=== PATIENT | female | born 1955 | race Caucasian/White ===

== ENCOUNTER 2016-08-03 19:49 | Emergency (ER) | payer MEDICAID ==
[~2016-08-03] VITALS: Ht 182.9 cm; Wt 86.4 kg
[~2016-08-03 19:49] MED LIST: ASPI-1093 PO; BUSP15 PO; LEVO50 PO
[2016-08-03 19:54] VITALS: BP 125/58
[2016-08-04] MEDS ORDERED: TRAZ-147 PO (11:46)
[2016-08-04] MEDS ORDERED: QUET50XR PO (11:46)
== END 2016-08-03 22:00 | disposition left against medical advice (07) ==
LOC: EMS 19:51
DX: F10.229 Alcohol dependence with intoxication, unspecified (principal); Y90.9 Presence of alcohol in blood, level not specified; Z53.21 Procedure and treatment not carried out due to patient leaving prior to being seen by health care provider

== ENCOUNTER 2016-08-04 11:30 | Emergency (ER) | payer MEDICAID, OTHER ==
[~2016-08-04] VITALS: Ht 170.2 cm; Wt 65.9 kg
[2016-08-04] MEDS ORDERED: TRAZ-147 PO (11:46)
[2016-08-04] MEDS ORDERED: QUET50XR PO (11:46)
[2016-08-04] MEDS ORDERED: MAGNESIUM SULFATE 2 GM, MVI, ADULT NO.1 WITH VIT K 10 ML, THIAMINE HCL 100 MG, FOLIC AC... IV ONE ×5 (12:30)
[2016-08-04 12:34] LABS: BASOPHILS % (AUTO) 0.5 % (0.0-2.0); EOSINOPHILS % (AUTO) 2.9 % (1.0-6.0); HEMATOCRIT 44.3 % (36-46); HEMOGLOBIN 14.5 g/dL (12.0-16.0); LYMPHOCYTES # (AUTO) 2.8 K/uL (1.0-4.8); LYMPHOCYTES % (AUTO) 40.5 % (22.0-44.0); MEAN CORPUSCULAR HEMOGLOBIN 29.1 pg (26.0-34.0); MEAN CORPUSCULAR HGB CONC 32.7 G/dL (31.0-37.0); MEAN CORPUSCULAR VOLUME 89 fL (80-100); MONOCYTES # (AUTO) 0.6 K/uL (0.1-1.0); MONOCYTES % (AUTO) 8.4 % (2.0-9.0); NEUTROPHILS # (AUTO) 3.3 K/uL (1.8-7.7); NEUTROPHILS % (AUTO) 47.7 % (40.0-70.0); PLATELET COUNT (AUTO) 249 K/uL (150-450); RED BLOOD CELL COUNT(AUTO) 4.98 MIL/uL (4.00-5.20); RED CELL DISTRIBUTION WIDTH 14.4 % (11.5-14.5); WHITE BLOOD COUNT (AUTO) 6.9 K/uL (4.5-11.0)
[2016-08-04 12:40] LABS: ANION GAP 15 mmol/L (8-16); CALCIUM, TOTAL 8.9 mg/dL (8.8-10.5); CARBON DIOXIDE 24 mmol/L (22-29); CHLORIDE 105 mmol/L (98-107); CREATININE 0.87 mg/dL (0.60-1.30); GLOMERULAR FILTR. RATE CALC > 60 mL/min (>60); POTASSIUM 3.9 mmol/L (3.5-5.1); SODIUM SERUM 144 mmol/L (136-145); UREA NITROGEN, BLOOD 11 mg/dL (7-18)
[2016-08-04 12:46] LABS: ALANINE AMINOTRANSFERASE 38 U/L (12-78); ALBUMIN 4.1 g/dL (3.4-5.0); ASPARTATE AMINOTRANSFERASE 30 U/L (15-37); BILIRUBIN,TOTAL 0.6 mg/dL (0.1-1.0); TOTAL PROTEIN, SERUM 7.2 g/dL (6.4-8.2)
[2016-08-04] MEDS ORDERED: BusPIRone HCL 15 MG TABLET PO ONE (20:00)
[2016-08-04] MEDS ORDERED: GABAPENTIN 100 MG CAPSULE PO ONE (20:00)
[2016-08-04 20:29] VITALS: BP 117/71
== END 2016-08-04 20:32 | disposition home or self-care (01) ==
LOC: EMS 11:32
DX: F10.229 Alcohol dependence with intoxication, unspecified (principal); Z79.82 Long term (current) use of aspirin; Y90.8 Blood alcohol level of 240 mg/100 ml or more
CPT/HCPCS: 36415; 70450; 71010; 80053; 84484; 85025; 93005; 96365; 96366; 99285; G0480; J3411; J3475; J3490 ×2; J7030

== ENCOUNTER 2016-09-17 15:11 | Inpatient (IN) | payer OTHER ==
[~2016-09-17] VITALS: Ht 175.3 cm; Wt 71.6 kg
[~2016-09-17 15:11] MED LIST changes: +QUET50XR PO; +TRAZ-147 PO; +[UNRECOGNIZED DRUG - REMARK]
[2016-09-17 15:22] LABS: GLUCOSE,POINT OF CARE 141 MG/DL (70-110)
[2016-09-17] MEDS ORDERED: SODIUM CHLORIDE 0.9% 1,000 ML IV ONE (15:45)
[2016-09-17] MEDS ORDERED: ASPIRIN 81 MG CHEWABLE TABLET PO ONE (15:45)
[2016-09-17 15:59] LABS: BASOPHILS % (AUTO) 0.8 % (0.0-2.0); EOSINOPHILS % (AUTO) 2.6 % (1.0-6.0); HEMATOCRIT 46.1 % (36-46); HEMOGLOBIN 15.8 g/dL (12.0-16.0); LYMPHOCYTES # (AUTO) 2.7 K/uL (1.0-4.8); LYMPHOCYTES % (AUTO) 39.5 % (22.0-44.0); MEAN CORPUSCULAR HEMOGLOBIN 30.8 pg (26.0-34.0); MEAN CORPUSCULAR HGB CONC 34.2 G/dL (31.0-37.0); MEAN CORPUSCULAR VOLUME 90 fL (80-100); MONOCYTES # (AUTO) 0.5 K/uL (0.1-1.0); MONOCYTES % (AUTO) 7.3 % (2.0-9.0); NEUTROPHILS # (AUTO) 3.4 K/uL (1.8-7.7); NEUTROPHILS % (AUTO) 49.8 % (40.0-70.0); PLATELET COUNT (AUTO) 273 K/uL (150-450); RED BLOOD CELL COUNT(AUTO) 5.11 MIL/uL (4.00-5.20); RED CELL DISTRIBUTION WIDTH 13.7 % (11.5-14.5); WHITE BLOOD COUNT (AUTO) 6.7 K/uL (4.5-11.0)
[2016-09-17] MEDS ORDERED: SODIUM CHLORIDE 0.9% 2,000 ML IV ONE (16:00)
[2016-09-17 16:12] LABS: ANION GAP 14 mmol/L (8-16); CALCIUM, TOTAL 8.9 mg/dL (8.8-10.5); CARBON DIOXIDE 22 mmol/L (22-29); CHLORIDE 104 mmol/L (98-107); CREATININE 0.86 mg/dL (0.60-1.30); GLOMERULAR FILTR. RATE CALC > 60 mL/min (>60); POTASSIUM 3.9 mmol/L (3.5-5.1); SODIUM SERUM 140 mmol/L (136-145); UREA NITROGEN, BLOOD 12 mg/dL (7-18)
[2016-09-17 16:30] LABS: B-TYPE NATRIURETIC PEPTIDE 41 pg/mL (0-100)
[2016-09-17 16:36] LABS: ALANINE AMINOTRANSFERASE 36 U/L (12-78); ALBUMIN 4.1 g/dL (3.4-5.0); ASPARTATE AMINOTRANSFERASE 33 U/L (15-37); BILIRUBIN,TOTAL 0.6 mg/dL (0.1-1.0); CREATINE KINASE MB 0.8 ng/mL (0-5); CREATINE KINASE, TOTAL 83 U/L (26-192); TOTAL PROTEIN, SERUM 7.4 g/dL (6.4-8.2)
[2016-09-17] MEDS ORDERED: DIGOXIN 250 MCG/ML 2 ML AMP IVP ONE (17:30)
[2016-09-17 19:25] LABS: APPEARANCE,URINE CLEAR (CLEAR); GLUCOSE, URINE (UA) NEGATIVE (NEGATIVE); KETONES,URINE NEGATIVE (NEGATIVE); LEUKOCYTE ESTERASE ,URINE NEGATIVE (NEGATIVE); OCCULT BLOOD,URINE NEGATIVE (NEGATIVE); PH,URINE 6.5 (5.0-8.0); PROTEIN,URINE NEGATIVE (NEGATIVE)
[2016-09-17 19:30] LABS: ADD UA MICROSCOPIC NO
[2016-09-17] MEDS ORDERED: ONDANSETRON HCL 4 MG/2 ML VIAL IVP PRN ×2 (20:30→23:30)
[2016-09-17] MEDS ORDERED: ACETAMINOPHEN 325 MG TABLET PO PRN ×2 (20:30→23:30)
[2016-09-17] MEDS ORDERED: 0.9% SODIUM CHLORIDE 10 ML SYRINGE IVP PRN (20:30)
[2016-09-17] MEDS ORDERED: ChlordiazePOXIDE HCL 25 MG CAPSULE PO ONE (20:45)
[2016-09-17 21:16] VITALS: BP 123/72
[2016-09-17] MEDS ORDERED: BISACODYL 10 MG RECTAL RECTAL SUPPOSITORY PR PRN (23:30)
[2016-09-17] MEDS ORDERED: ALBUTEROL SULFATE 2.5 MG/0.5 ML NEB SOLUTION NEB PRN (23:30)
[2016-09-17] MEDS ORDERED: IPRATROPIUM BROMIDE 0.5 MG/2.5 ML NEB SOLUTION NEB PRN (23:30)
[2016-09-17] MEDS ORDERED: MAGNESIUM HYDROXIDE SUSPENSION 30 ML UDCUP PO PRN (23:30)
[2016-09-17] MEDS ORDERED: HYDROCODONE/ACETAMINOPHEN 5-325 MG TABLET PO PRN (23:30)
[2016-09-17] MEDS ORDERED: ZOLPIDEM TARTRATE 5 MG TABLET PO PRN (23:30)
[2016-09-17] MEDS ORDERED: MORPHINE SULFATE 4 MG/ML SYRINGE IVP PRN (23:30)
[2016-09-18 00:30] VITALS: BP 124/93
[2016-09-18] MEDS: HEPARIN SODIUM,PORCINE 5,000 UNITS/ML VIAL SQ SCH ×3 (00:49→15:54)
[2016-09-18 04:49] VITALS: BP 143/86
[2016-09-18 06:11] LABS: ALANINE AMINOTRANSFERASE 39 U/L (12-78); ANION GAP 10 mmol/L (8-16); ASPARTATE AMINOTRANSFERASE 34 U/L (15-37); BILIRUBIN,TOTAL 1.1 mg/dL (0.1-1.0); CALCIUM, TOTAL 9.2 mg/dL (8.8-10.5); CARBON DIOXIDE 26 mmol/L (22-29); CHLORIDE 102 mmol/L (98-107); CREATININE 0.71 mg/dL (0.60-1.30); GLOMERULAR FILTR. RATE CALC > 60 mL/min (>60); POTASSIUM 3.6 mmol/L (3.5-5.1); SODIUM SERUM 138 mmol/L (136-145); TOTAL PROTEIN, SERUM 7.2 g/dL (6.4-8.2); UREA NITROGEN, BLOOD 10 mg/dL (7-18)
[2016-09-18 06:52] LABS: BASOPHILS % (AUTO) 0.6 % (0.0-2.0); EOSINOPHILS % (AUTO) 2.9 % (1.0-6.0); HEMATOCRIT 44.7 % (36-46); HEMOGLOBIN 15.7 g/dL (12.0-16.0); LYMPHOCYTES # (AUTO) 2.3 K/uL (1.0-4.8); LYMPHOCYTES % (AUTO) 28.4 % (22.0-44.0); MEAN CORPUSCULAR HEMOGLOBIN 31.2 pg (26.0-34.0); MEAN CORPUSCULAR HGB CONC 35.1 G/dL (31.0-37.0); MEAN CORPUSCULAR VOLUME 89 fL (80-100); MONOCYTES # (AUTO) 0.6 K/uL (0.1-1.0); MONOCYTES % (AUTO) 7.3 % (2.0-9.0); NEUTROPHILS % (AUTO) 60.8 % (40.0-70.0); PLATELET COUNT (AUTO) 264 K/uL (150-450); RED BLOOD CELL COUNT(AUTO) 5.03 MIL/uL (4.00-5.20); RED CELL DISTRIBUTION WIDTH 13.7 % (11.5-14.5); WHITE BLOOD COUNT (AUTO) 8.3 K/uL (4.5-11.0)
[2016-09-18 07:38] VITALS: BP 131/79
[2016-09-18] MEDS ORDERED: DOCUSATE SODIUM 100 MG CAPSULE PO SCH (09:00)
[2016-09-18] MEDS ORDERED: ASPIRIN 81 MG EC TABLET PO SCH (09:00)
[2016-09-18] MEDS ORDERED: BusPIRone HCL 15 MG TABLET PO SCH ×2 (09:00→21:00)
[2016-09-18] MEDS ORDERED: PANTOPRAZOLE SODIUM 40 MG/VIAL IVP SCH (09:00)
[2016-09-18 11:33] VITALS: BP 132/87
[2016-09-18] MEDS ORDERED: SERTRALINE HCL 100 MG TABLET PO SCH (12:45)
[2016-09-18] MEDS ORDERED: GABAPENTIN 300 MG CAPSULE PO SCH (12:45)
[2016-09-18] MEDS ORDERED: SERT100T12 PO (12:47)
[2016-09-18] MEDS ORDERED: GABA-531 PO (12:47)
[2016-09-18] MEDS ORDERED: ALPRAZolam 0.5 MG TABLET PO ONE (13:00)
[2016-09-18] MEDS ORDERED: DSS100 PO (13:09)
[2016-09-18 15:35] VITALS: BP 135/89
== END 2016-09-18 19:00 | disposition home or self-care (01) | DRG 775 ==
LOC: EMS 15:14 → 5N 19:52
PROVIDERS: ADMIT Hospitalist; ATTEND Hospitalist
DX: F10.10 Alcohol abuse, uncomplicated (principal); I48.91 Unspecified atrial fibrillation; F32.9 Major depressive disorder, single episode, unspecified; E03.9 Hypothyroidism, unspecified; E86.0 Dehydration; F41.9 Anxiety disorder, unspecified; N28.9 Disorder of kidney and ureter, unspecified; Y90.8 Blood alcohol level of 240 mg/100 ml or more
CPT/HCPCS: 82962; 93005; 96361; 96374; 99285; C9113; G0480; J1160; J1644; J7030

== ENCOUNTER 2017-11-11 15:25 | Inpatient (IN) | payer SELFPAY ==
[~2017-11-11] VITALS: Ht 167.6 cm; Wt 69.9 kg
[~2017-11-11 15:25] MED LIST changes: -ASPI-1093 PO; +ASPI-1182 PO; +DSS100 PO; +GABA-531 PO; -LEVO50 PO; -QUET50XR PO; +SERT100T12 PO; -TRAZ-147 PO; -[UNRECOGNIZED DRUG - REMARK]
[2017-11-11 16:13] LABS: GLUCOSE,POINT OF CARE 108 MG/DL (70-110)
[2017-11-11 16:16] LABS: HEMOGLOBIN 14.4 g/dL (12.0-16.0); LYMPHOCYTES # (AUTO) 3.2 K/uL (1.0-4.8); LYMPHOCYTES % (AUTO) 47.2 % (22.0-44.0); MEAN CORPUSCULAR HEMOGLOBIN 31.5 pg (26.0-34.0); MEAN CORPUSCULAR VOLUME 90 fL (80-100); MONOCYTES # (AUTO) 0.4 K/uL (0.1-1.0); MONOCYTES % (AUTO) 6.1 % (2.0-9.0); NEUTROPHILS # (AUTO) 2.8 K/uL (1.8-7.7); NEUTROPHILS % (AUTO) 40.7 % (40.0-70.0); PLATELET COUNT (AUTO) 183 K/uL (150-450); RED BLOOD CELL COUNT(AUTO) 4.56 MIL/uL (4.00-5.20); RED CELL DISTRIBUTION WIDTH 12.5 % (11.5-14.5)
[2017-11-11 16:34] LABS: ANION GAP 10 mmol/L (8-16); CALCIUM, TOTAL 8.5 mg/dL (8.8-10.5); CARBON DIOXIDE 26 mmol/L (22-29); CHLORIDE 109 mmol/L (98-107); CREATININE 0.72 mg/dL (0.60-1.30); GLOMERULAR FILTR. RATE CALC > 60 mL/min (>60); GLUCOSE,RANDOM 103 mg/dL (70-110); POTASSIUM 3.7 mmol/L (3.5-5.1); SODIUM SERUM 145 mmol/L (136-145); UREA NITROGEN, BLOOD 11 mg/dL (7-18)
[2017-11-11 16:40] LABS: ALANINE AMINOTRANSFERASE 31 U/L (12-78); ALBUMIN 3.7 g/dL (3.4-5.0); ALKALINE PHOSPHATASE 103 U/L (46-116); ASPARTATE AMINOTRANSFERASE 25 U/L (15-37); BILIRUBIN,TOTAL 0.7 mg/dL (0.1-1.0); TOTAL PROTEIN, SERUM 6.7 g/dL (6.4-8.2)
[2017-11-11] MEDS ORDERED: LORazepam 2 MG TABLET PO PRN (18:30)
[2017-11-11] MEDS ORDERED: HALOPERIDOL 5 MG TABLET PO PRN (18:30)
[2017-11-11] MEDS ORDERED: ZOLPIDEM TARTRATE 10 MG TABLET PO PRN (18:30)
[2017-11-11] MEDS ORDERED: LORazepam 1 MG TABLET PO ONE (19:00)
[2017-11-11 20:18] LABS: AMPHET/METH SCREEN,URINE NEGATIVE (NEGATIVE); BARBITURATE SCREEN, URINE NEGATIVE (NEGATIVE); BENZODIAZEPINES SCREEN,URINE NEGATIVE (NEGATIVE); CANNABINOID SCREEN,URINE NEGATIVE (NEGATIVE); COCAINE SCREEN,URINE NEGATIVE (NEGATIVE); METHADONE SCREEN, URINE NEGATIVE (NEGATIVE); OPIATE SCREEN,URINE NEGATIVE (NEGATIVE)
[2017-11-11 20:21] LABS: PHENCYCLIDINE SCREEN,URINE NEGATIVE (NEGATIVE)
[2017-11-12] VITALS (8 sets, daily range): BP systolic 130–161; BP diastolic 78–93
[2017-11-12] MEDS ORDERED: LORazepam 2 MG TABLET PO PRN (07:00)
[2017-11-12 07:41] LABS: CHOL/HDL RATIO 2.4 (3.9-5.7)
[2017-11-12] MEDS: LORazepam 2 MG TABLET PO SCH ×4 (09:40→21:06)
[2017-11-12] MEDS: FLUoxetine HCL 20 MG CAPSULE PO SCH (09:40)
[2017-11-12] MEDS ORDERED: ALBUTEROL SULFATE HFA 90 MCG/PUFF 8 GM INHALER IH PRN (11:00)
[2017-11-12] MEDS ORDERED: PETROLATUM,WHITE 71 GM JELLY TP PRN (11:00)
[2017-11-12] MEDS ORDERED: NICOTINE 14 MG/24 HOUR PATCH TD PRN (11:00)
[2017-11-12] MEDS ORDERED: ACETAMINOPHEN 325 MG TABLET PO PRN (11:00)
[2017-11-12] MEDS ORDERED: CloNIDine HCL 0.1 MG TABLET PO PRN (11:00)
[2017-11-12] MEDS ORDERED: MAGNESIUM HYDROXIDE SUSPENSION 30 ML UDCUP PO PRN (11:00)
[2017-11-12] MEDS ORDERED: IBUPROFEN 400 MG TABLET PO PRN (11:00)
[2017-11-12] MEDS ORDERED: ONDANSETRON HCL 4 MG TABLET PO PRN (11:00)
[2017-11-12] MEDS ORDERED: LOPERAMIDE HCL 2 MG CAPSULE PO PRN (11:00)
[2017-11-12] MEDS ORDERED: GuaiFENesin/D-METHORPHAN [SUGAR-FREE] 200-20MG/10 ML SYRUP UDCUP PO PRN (11:00)
[2017-11-12] MEDS ORDERED: DOCUSATE SODIUM 100 MG CAPSULE PO PRN (11:00)
[2017-11-12] MEDS ORDERED: MAG HYDROX/AL HYDROX/SIMETH ES 30 ML SUSPENSION UDCUP PO PRN (11:00)
[2017-11-12] MEDS: SERTRALINE HCL 50 MG TABLET PO SCH (16:42)
[2017-11-12] MEDS: BusPIRone HCL 5 MG TABLET PO SCH (21:06)
[2017-11-12] MEDS: GABAPENTIN 300 MG CAPSULE PO SCH (21:06)
[2017-11-13 07:10] VITALS: BP 135/80
[2017-11-13 08:20] VITALS: BP 138/88
[2017-11-13] MEDS: LORazepam 2 MG TABLET PO SCH ×4 (08:45→20:16)
[2017-11-13] MEDS: BusPIRone HCL 5 MG TABLET PO SCH ×2 (08:45→20:16)
[2017-11-13] MEDS: GABAPENTIN 300 MG CAPSULE PO SCH ×2 (08:45→20:16)
[2017-11-13] MEDS: SERTRALINE HCL 50 MG TABLET PO SCH (08:46)
[2017-11-13] MEDS: FLUoxetine HCL 20 MG CAPSULE PO SCH (08:48)
[2017-11-13 18:22] VITALS: BP 117/88
[2017-11-14 06:53] VITALS: BP 120/84
[2017-11-14] MEDS ORDERED: LORazepam 1 MG TABLET PO PRN (07:00)
[2017-11-14 08:14] VITALS: BP 106/71
[2017-11-14] MEDS: BusPIRone HCL 5 MG TABLET PO SCH ×2 (08:59→20:17)
[2017-11-14] MEDS: LORazepam 1 MG TABLET PO SCH ×4 (09:00→20:17)
[2017-11-14] MEDS: SERTRALINE HCL 50 MG TABLET PO SCH (09:00)
[2017-11-14] MEDS: FLUoxetine HCL 20 MG CAPSULE PO SCH (09:00)
[2017-11-14] MEDS: GABAPENTIN 300 MG CAPSULE PO SCH ×2 (09:00→20:18)
[2017-11-14 19:33] VITALS: BP 126/90
[2017-11-15 05:39] VITALS: BP 113/85
[2017-11-15 05:40] VITALS: BP 113/85
[2017-11-15] MEDS ORDERED: LORazepam 1 MG TABLET PO PRN (07:00)
[2017-11-15] MEDS: FLUoxetine HCL 20 MG CAPSULE PO SCH (08:59)
[2017-11-15] MEDS: GABAPENTIN 300 MG CAPSULE PO SCH ×2 (08:59→20:27)
[2017-11-15] MEDS: BusPIRone HCL 5 MG TABLET PO SCH ×2 (08:59→20:26)
[2017-11-15] MEDS: SERTRALINE HCL 50 MG TABLET PO SCH (08:59)
[2017-11-15 10:12] VITALS: BP 109/76
[2017-11-15 10:13] VITALS: BP 109/79
[2017-11-15 18:27] VITALS: BP 126/84
[2017-11-15 18:31] VITALS: BP 126/84
[2017-11-16 04:25] VITALS: BP 123/70
[2017-11-16 04:26] VITALS: BP 123/70
[2017-11-16] MEDS: SERTRALINE HCL 50 MG TABLET PO SCH (09:08)
[2017-11-16] MEDS: BusPIRone HCL 5 MG TABLET PO SCH ×2 (09:08→20:33)
[2017-11-16] MEDS: FLUoxetine HCL 20 MG CAPSULE PO SCH (09:08)
[2017-11-16] MEDS: GABAPENTIN 300 MG CAPSULE PO SCH ×2 (09:08→20:33)
[2017-11-16 10:48] VITALS: BP 119/70
[2017-11-16 19:09] VITALS: BP 135/76
[2017-11-17 01:15] VITALS: BP 128/84
[2017-11-17 09:18] VITALS: BP 117/68
[2017-11-17] MEDS: SERTRALINE HCL 50 MG TABLET PO SCH (09:19)
[2017-11-17] MEDS: GABAPENTIN 300 MG CAPSULE PO SCH (09:19)
[2017-11-17] MEDS: BusPIRone HCL 5 MG TABLET PO SCH (09:19)
[2017-11-17] MEDS: FLUoxetine HCL 20 MG CAPSULE PO SCH (09:19)
[2017-11-17] MEDS ORDERED: BUSP5TAB20 PO (10:04)
[2017-11-17] MEDS ORDERED: FLUO-191 PO (10:04)
[2017-11-17] MEDS ORDERED: GABA-531 PO (10:05)
[2017-11-17] MEDS ORDERED: SERT50TA12 PO (10:05)
== END 2017-11-17 14:30 | disposition home or self-care (01) | DRG 885 ==
LOC: EMS 15:26 → 3EI 21:14
PROVIDERS: ADMIT Psychiatry & Neurology Psychiatry; ATTEND Psychiatry & Neurology Psychiatry
DX: F33.2 Major depressive disorder, recurrent severe without psychotic features (principal); R45.851 Suicidal ideations; E03.9 Hypothyroidism, unspecified; E78.5 Hyperlipidemia, unspecified; F41.0 Panic disorder [episodic paroxysmal anxiety]; I48.0 Paroxysmal atrial fibrillation; F10.10 Alcohol abuse, uncomplicated; F19.10 Other psychoactive substance abuse, uncomplicated; N18.9 Chronic kidney disease, unspecified; Z79.899 Other long term (current) drug therapy; Z71.51 Drug abuse counseling and surveillance of drug abuser; Z71.41 Alcohol abuse counseling and surveillance of alcoholic
CPT/HCPCS: 99285; G0480; Q0162

== ENCOUNTER 2018-01-11 18:11 | Emergency (ER) | payer MEDICAID ==
[~2018-01-11] VITALS: Ht 177.8 cm; Wt 75.5 kg
[~2018-01-11 18:11] MED LIST changes: -ASPI-1182 PO; -BUSP15 PO; +BUSP5TAB20 PO; -DSS100 PO; +FLUO-191 PO; -SERT100T12 PO; +SERT50TA12 PO
[2018-01-11 21:11] LABS: BASOPHILS % (AUTO) 0.9 % (0.0-2.0); EOSINOPHILS % (AUTO) 5.2 % (1.0-6.0); HEMATOCRIT 38.3 % (36-46); HEMOGLOBIN 13.4 g/dL (12.0-16.0); LYMPHOCYTES % (AUTO) 45.4 % (22.0-44.0); MEAN CORPUSCULAR HEMOGLOBIN 31.6 pg (26.0-34.0); MEAN CORPUSCULAR HGB CONC 34.9 G/dL (31.0-37.0); MEAN CORPUSCULAR VOLUME 90 fL (80-100); MONOCYTES # (AUTO) 0.5 K/uL (0.1-1.0); NEUTROPHILS # (AUTO) 2.7 K/uL (1.8-7.7); NEUTROPHILS % (AUTO) 41.5 % (40.0-70.0); PLATELET COUNT (AUTO) 193 K/uL (150-450); RED BLOOD CELL COUNT(AUTO) 4.24 MIL/uL (4.00-5.20); RED CELL DISTRIBUTION WIDTH 14.1 % (11.5-14.5)
[2018-01-11 21:56] LABS: ANION GAP 9 mmol/L (8-16); CALCIUM, TOTAL 8.8 mg/dL (8.8-10.5); CARBON DIOXIDE 27 mmol/L (22-29); CHLORIDE 105 mmol/L (98-107); CREATININE 0.79 mg/dL (0.60-1.30); GLOMERULAR FILTR. RATE CALC > 60 mL/min (>60); GLUCOSE,RANDOM 90 mg/dL (70-110); POTASSIUM 3.6 mmol/L (3.5-5.1); SODIUM SERUM 141 mmol/L (136-145); UREA NITROGEN, BLOOD 12 mg/dL (7-18)
[2018-01-11 22:04] LABS: ALANINE AMINOTRANSFERASE 41 U/L (12-78); ALBUMIN 3.8 g/dL (3.4-5.0); ALKALINE PHOSPHATASE 82 U/L (46-116); ASPARTATE AMINOTRANSFERASE 31 U/L (15-37); BILIRUBIN,TOTAL 0.6 mg/dL (0.1-1.0)
[2018-01-12 04:21] VITALS: BP 119/68
== END 2018-01-12 04:43 | disposition home or self-care (01) ==
LOC: EMS 18:12
DX: F32.9 Major depressive disorder, single episode, unspecified (principal); F41.9 Anxiety disorder, unspecified; N28.9 Disorder of kidney and ureter, unspecified; F10.229 Alcohol dependence with intoxication, unspecified; Z90.89 Acquired absence of other organs; Z79.899 Other long term (current) drug therapy; Y90.8 Blood alcohol level of 240 mg/100 ml or more
CPT/HCPCS: 36415; 80053; 85025; 99285; G0480

== ENCOUNTER 2018-05-01 03:34 | Emergency (ER) | payer MEDICAID, OTHER ==
[~2018-05-01] VITALS: Ht 172.7 cm; Wt 62.0 kg
[2018-05-01 05:10] LABS: BASOPHILS % (AUTO) 0.5 % (0.0-2.0); EOSINOPHILS % (AUTO) 0.7 % (1.0-6.0); HEMATOCRIT 42.3 % (36-46); HEMOGLOBIN 14.9 g/dL (12.0-16.0); LYMPHOCYTES % (AUTO) 22.4 % (22.0-44.0); MEAN CORPUSCULAR HEMOGLOBIN 29.5 pg (26.0-34.0); MEAN CORPUSCULAR HGB CONC 35.2 G/dL (31.0-37.0); MEAN CORPUSCULAR VOLUME 84 fL (80-100); MONOCYTES # (AUTO) 0.7 K/uL (0.1-1.0); MONOCYTES % (AUTO) 7.6 % (2.0-9.0); NEUTROPHILS # (AUTO) 6.1 K/uL (1.8-7.7); NEUTROPHILS % (AUTO) 68.8 % (40.0-70.0); PLATELET COUNT (AUTO) 340 K/uL (150-450); RED BLOOD CELL COUNT(AUTO) 5.04 MIL/uL (4.00-5.20); RED CELL DISTRIBUTION WIDTH 15.2 % (11.5-14.5)
[2018-05-01 05:13] LABS: ANION GAP 12 mmol/L (8-16); CALCIUM, TOTAL 9.7 mg/dL (8.8-10.5); CARBON DIOXIDE 23 mmol/L (22-29); CHLORIDE 97 mmol/L (98-107); CREATININE 0.69 mg/dL (0.60-1.30); GLOMERULAR FILTR. RATE CALC > 60 mL/min (>60); GLUCOSE,RANDOM 98 mg/dL (70-110); SODIUM SERUM 132 mmol/L (136-145); UREA NITROGEN, BLOOD 20 mg/dL (7-18)
[2018-05-01 05:25] LABS: ALANINE AMINOTRANSFERASE 33 U/L (12-78); ALBUMIN 3.7 g/dL (3.4-5.0); ALKALINE PHOSPHATASE 61 U/L (46-116); ASPARTATE AMINOTRANSFERASE 31 U/L (15-37); BILIRUBIN,TOTAL 0.6 mg/dL (0.1-1.0); TOTAL PROTEIN, SERUM 7.2 g/dL (6.4-8.2)
[2018-05-01 11:29] LABS: AMPHET/METH SCREEN,URINE NEGATIVE (NEGATIVE); BARBITURATE SCREEN, URINE NEGATIVE (NEGATIVE); BENZODIAZEPINES SCREEN,URINE NEGATIVE (NEGATIVE); CANNABINOID SCREEN,URINE NEGATIVE (NEGATIVE); COCAINE SCREEN,URINE NEGATIVE (NEGATIVE); METHADONE SCREEN, URINE NEGATIVE (NEGATIVE); OPIATE SCREEN,URINE NEGATIVE (NEGATIVE); PHENCYCLIDINE SCREEN,URINE NEGATIVE (NEGATIVE)
[2018-05-01 13:56] VITALS: BP 123/73
== END 2018-05-01 14:43 | disposition home or self-care (01) ==
LOC: EMS 03:35
DX: F33.9 Major depressive disorder, recurrent, unspecified (principal); F10.10 Alcohol abuse, uncomplicated; F41.9 Anxiety disorder, unspecified; Y90.0 Blood alcohol level of less than 20 mg/100 ml
CPT/HCPCS: 36415; 80053; 80307; 85025; 99284; G0480

== ENCOUNTER 2018-07-02 15:06 | Emergency (ER) | payer OTHER ==
[~2018-07-02] VITALS: Ht 170.2 cm; Wt 69.7 kg
[2018-07-02 16:18] LABS: BASOPHILS % (AUTO) 1.4 % (0.0-2.0); EOSINOPHILS % (AUTO) 5.1 % (1.0-6.0); HEMATOCRIT 36.7 % (36-46); HEMOGLOBIN 12.7 g/dL (12.0-16.0); LYMPHOCYTES # (AUTO) 2.1 K/uL (1.0-4.8); LYMPHOCYTES % (AUTO) 23.9 % (22.0-44.0); MEAN CORPUSCULAR HEMOGLOBIN 31.3 pg (26.0-34.0); MEAN CORPUSCULAR HGB CONC 34.5 G/dL (31.0-37.0); MEAN CORPUSCULAR VOLUME 91 fL (80-100); MONOCYTES # (AUTO) 0.8 K/uL (0.1-1.0); MONOCYTES % (AUTO) 8.8 % (2.0-9.0); NEUTROPHILS # (AUTO) 5.4 K/uL (1.8-7.7); NEUTROPHILS % (AUTO) 60.8 % (40.0-70.0); PLATELET COUNT (AUTO) 174 K/uL (150-450); RED BLOOD CELL COUNT(AUTO) 4.05 MIL/uL (4.00-5.20); RED CELL DISTRIBUTION WIDTH 20.9 % (11.5-14.5)
[2018-07-02 16:31] LABS: ANION GAP 13 mmol/L (8-16); CALCIUM, TOTAL 9.6 mg/dL (8.8-10.5); CARBON DIOXIDE 24 mmol/L (22-29); CHLORIDE 102 mmol/L (98-107); CREATININE 0.79 mg/dL (0.60-1.30); GLOMERULAR FILTR. RATE CALC > 60 mL/min (>60); GLUCOSE,RANDOM 96 mg/dL (70-110); POTASSIUM 3.6 mmol/L (3.5-5.1); SODIUM SERUM 139 mmol/L (136-145); UREA NITROGEN, BLOOD 13 mg/dL (7-18)
[2018-07-02 16:47] LABS: ALANINE AMINOTRANSFERASE 42 U/L (12-78); ALBUMIN 3.5 g/dL (3.4-5.0); ALKALINE PHOSPHATASE 78 U/L (46-116); ASPARTATE AMINOTRANSFERASE 39 U/L (15-37); BILIRUBIN,TOTAL 0.5 mg/dL (0.1-1.0); THYROID STIMULATING HORMONE 0.95 uIU/mL (0.36-3.74)
[2018-07-02] MEDS ORDERED: SODIUM CHLORIDE 0.9% 1,000 ML IV ONE (17:00)
[2018-07-02] MEDS ORDERED: MAGNESIUM SULFATE 2 GM, MVI, ADULT NO.1 WITH VIT K 10 ML, THIAMINE HCL 100 MG, FOLIC AC... IV ONE ×5 (17:30)
[2018-07-02 23:21] LABS: APPEARANCE,URINE CLEAR (CLEAR); BILIRUBIN,URINE NEGATIVE (NEGATIVE); GLUCOSE, URINE (UA) NEGATIVE (NEGATIVE); KETONES,URINE NEGATIVE (NEGATIVE); LEUKOCYTE ESTERASE ,URINE SMALL (NEGATIVE); NITRATE,URINE NEGATIVE (NEGATIVE); OCCULT BLOOD,URINE NEGATIVE (NEGATIVE); PROTEIN,URINE NEGATIVE (NEGATIVE); UROBILINOGEN,URINE 0.2 mg/dL (<=1.0)
[2018-07-02 23:26] LABS: AMPHET/METH SCREEN,URINE NEGATIVE (NEGATIVE); BARBITURATE SCREEN, URINE NEGATIVE (NEGATIVE); BENZODIAZEPINES SCREEN,URINE POSITIVE (NEGATIVE); CANNABINOID SCREEN,URINE NEGATIVE (NEGATIVE); COCAINE SCREEN,URINE NEGATIVE (NEGATIVE); METHADONE SCREEN, URINE NEGATIVE (NEGATIVE); OPIATE SCREEN,URINE NEGATIVE (NEGATIVE)
[2018-07-02 23:30] LABS: PHENCYCLIDINE SCREEN,URINE NEGATIVE (NEGATIVE)
[2018-07-02 23:46] LABS: BACTERIA,URINE Rare /HPF (None Seen); RBC,URINE 0-2 /HPF (0-2); SQUAMOUS EPITHELIAL CELL,UR Few /LPF (None Seen)
[2018-07-03] MEDS ORDERED: LORazepam 2 MG TABLET PO ONE (00:15)
[2018-07-03 05:15] VITALS: BP 107/73
== END 2018-07-03 06:00 | disposition home or self-care (01) ==
LOC: EMS 15:09
DX: F32.9 Major depressive disorder, single episode, unspecified (principal); K70.30 Alcoholic cirrhosis of liver without ascites; F10.129 Alcohol abuse with intoxication, unspecified; F41.9 Anxiety disorder, unspecified; Y90.8 Blood alcohol level of 240 mg/100 ml or more
CPT/HCPCS: 36415; 80053; 80307; 81001; 84443; 85025; 87086; 96365; 96366; 99285; G0480; J3411; J3475; J3490 ×2; J7030

== ENCOUNTER 2018-07-22 00:29 | Emergency (ER) | payer OTHER ==
[~2018-07-22] VITALS: Ht 177.8 cm; Wt 75.0 kg
[2018-07-22 02:57] LABS: BASOPHILS % (AUTO) 0.6 % (0.0-2.0); EOSINOPHILS % (AUTO) 5.8 % (1.0-6.0); HEMATOCRIT 43.8 % (36-46); HEMOGLOBIN 14.7 g/dL (12.0-16.0); LYMPHOCYTES # (AUTO) 2.8 K/uL (1.0-4.8); LYMPHOCYTES % (AUTO) 35.6 % (22.0-44.0); MEAN CORPUSCULAR HEMOGLOBIN 32.5 pg (26.0-34.0); MEAN CORPUSCULAR HGB CONC 33.6 G/dL (31.0-37.0); MEAN CORPUSCULAR VOLUME 97 fL (80-100); MONOCYTES # (AUTO) 0.5 K/uL (0.1-1.0); MONOCYTES % (AUTO) 6.8 % (2.0-9.0); NEUTROPHILS # (AUTO) 4.1 K/uL (1.8-7.7); NEUTROPHILS % (AUTO) 51.2 % (40.0-70.0); PLATELET COUNT (AUTO) 263 K/uL (150-450); RED BLOOD CELL COUNT(AUTO) 4.52 MIL/uL (4.00-5.20)
[2018-07-22 03:00] LABS: ANION GAP 13 mmol/L (8-16); CALCIUM, TOTAL 8.7 mg/dL (8.8-10.5); CARBON DIOXIDE 25 mmol/L (22-29); CHLORIDE 109 mmol/L (98-107); CREATININE 0.69 mg/dL (0.60-1.30); GLOMERULAR FILTR. RATE CALC > 60 mL/min (>60); GLUCOSE,RANDOM 78 mg/dL (70-110); POTASSIUM 3.3 mmol/L (3.5-5.1); SODIUM SERUM 147 mmol/L (136-145); UREA NITROGEN, BLOOD 12 mg/dL (7-18)
[2018-07-22 03:08] LABS: ALANINE AMINOTRANSFERASE 74 U/L (12-78); ALKALINE PHOSPHATASE 86 U/L (46-116); ASPARTATE AMINOTRANSFERASE 71 U/L (15-37); BILIRUBIN,TOTAL 0.2 mg/dL (0.1-1.0); TOTAL PROTEIN, SERUM 7.9 g/dL (6.4-8.2)
[2018-07-22] MEDS ORDERED: POTASSIUM CHLORIDE 20 MEQ ER TABLET PO ONE (03:15)
[2018-07-22] MEDS ORDERED: SODIUM CHLORIDE 0.9% 1,000 ML IV ONE (03:45)
[2018-07-22 06:30] VITALS: BP 110/68
[2018-07-22 07:14] LABS: GLUCOSE,POINT OF CARE 71 MG/DL (70-110)
[2018-07-22] MEDS ORDERED: IBUPROFEN 600 MG TABLET PO ONE (07:45)
== END 2018-07-22 08:04 | disposition home or self-care (01) ==
LOC: EMS 00:31
DX: F10.229 Alcohol dependence with intoxication, unspecified (principal); F32.9 Major depressive disorder, single episode, unspecified; F41.9 Anxiety disorder, unspecified; Y90.8 Blood alcohol level of 240 mg/100 ml or more
CPT/HCPCS: 36415; 80053; 82962; 85025; 99285; G0480; J7030; 82948; 96360

== ENCOUNTER 2020-06-04 17:22 | Inpatient (IN) | payer MEDICAID, OTHER ==
[~2020-06-04] VITALS: Ht 177.8 cm; Wt 79.6 kg
[~2020-06-04 17:22] MED LIST changes: +GABA-1181 PO; -GABA-531 PO; +SERT-158 PO; -SERT50TA12 PO
[2020-06-04 20:06] LABS: AMPHET/METH SCREEN,URINE NEGATIVE (NEGATIVE); BARBITURATE SCREEN, URINE NEGATIVE (NEGATIVE); BENZODIAZEPINES SCREEN,URINE POSITIVE (NEGATIVE); CANNABINOID SCREEN,URINE NEGATIVE (NEGATIVE); COCAINE SCREEN,URINE NEGATIVE (NEGATIVE); METHADONE SCREEN, URINE NEGATIVE (NEGATIVE); OPIATE SCREEN,URINE NEGATIVE (NEGATIVE)
[2020-06-04 20:06] LABS: BASOPHILS % (AUTO) 2.1 % (0.0-2.0); EOSINOPHILS % (AUTO) 2.2 % (1.0-6.0); HEMATOCRIT 35.5 % (36-46); HEMOGLOBIN 12.2 g/dL (12.0-16.0); LYMPHOCYTES % (AUTO) 45.6 % (22.0-44.0); MEAN CORPUSCULAR HEMOGLOBIN 32.5 pg (26.0-34.0); MEAN CORPUSCULAR HGB CONC 34.5 G/dL (31.0-37.0); MEAN CORPUSCULAR VOLUME 94 fL (80-100); MONOCYTES # (AUTO) 0.7 K/uL (0.1-1.0); MONOCYTES % (AUTO) 15.4 % (2.0-9.0); NEUTROPHILS # (AUTO) 1.6 K/uL (1.8-7.7); NEUTROPHILS % (AUTO) 34.7 % (40.0-70.0); PLATELET COUNT (AUTO) 158 K/uL (150-450); RED BLOOD CELL COUNT(AUTO) 3.77 MIL/uL (4.00-5.20); RED CELL DISTRIBUTION WIDTH 17.1 % (11.5-14.5)
[2020-06-04 20:07] LABS: PHENCYCLIDINE SCREEN,URINE NEGATIVE (NEGATIVE)
[2020-06-04 20:15] LABS: ANION GAP 13 mmol/L (8-16); CALCIUM, TOTAL 9.3 mg/dL (8.8-10.5); CARBON DIOXIDE 27 mmol/L (22-29); CHLORIDE 104 mmol/L (98-107); CREATININE 0.77 mg/dL (0.60-1.30); GLOMERULAR FILTR. RATE CALC > 60 mL/min (>60); GLUCOSE,RANDOM 92 mg/dL (70-110); POTASSIUM 3.5 mmol/L (3.5-5.1); SODIUM SERUM 144 mmol/L (136-145); UREA NITROGEN, BLOOD 7 mg/dL (7-18)
[2020-06-04 20:21] LABS: ALANINE AMINOTRANSFERASE 156 U/L (12-78); ALKALINE PHOSPHATASE 86 U/L (46-116); ASPARTATE AMINOTRANSFERASE 198 U/L (15-37); BILIRUBIN,TOTAL 0.7 mg/dL (0.1-1.0); TOTAL PROTEIN, SERUM 7.4 g/dL (6.4-8.2)
[2020-06-04 20:39] LABS: COVID AG,FIA SOURCE NASOPHARYNGEAL
[2020-06-05] VITALS (10 sets, daily range): BP systolic 117–151; BP diastolic 63–104
[2020-06-05] MEDS: LORazepam 2 MG TABLET PO PRN ×2 (01:14→04:49)
[2020-06-05] MEDS ORDERED: LORazepam 2 MG TABLET PO PRN (07:00)
[2020-06-05 07:01] LABS: CHOL/HDL RATIO 1.7 (3.9-5.7)
[2020-06-05] MEDS ORDERED: NICOTINE 14 MG/24 HOUR PATCH TD PRN (07:30)
[2020-06-05] MEDS ORDERED: DOCUSATE SODIUM 100 MG CAPSULE PO PRN (07:30)
[2020-06-05] MEDS ORDERED: MAGNESIUM HYDROXIDE SUSPENSION 30 ML UDCUP PO PRN (07:30)
[2020-06-05] MEDS ORDERED: GuaiFENesin/D-METHORPHAN [SUGAR-FREE] 200-20MG/10 ML SYRUP UDCUP PO PRN (07:30)
[2020-06-05] MEDS ORDERED: ONDANSETRON HCL 4 MG TABLET PO PRN (07:30)
[2020-06-05] MEDS ORDERED: CloNIDine HCL 0.1 MG TABLET PO PRN (07:30)
[2020-06-05] MEDS ORDERED: PETROLATUM,WHITE 28 GM JELLY TP PRN (07:30)
[2020-06-05] MEDS ORDERED: ALBUTEROL SULFATE HFA 90 MCG/PUFF 8 GM INHALER IH PRN (07:30)
[2020-06-05] MEDS ORDERED: LOPERAMIDE HCL 2 MG CAPSULE PO PRN (07:30)
[2020-06-05] MEDS ORDERED: MAG HYDROX/AL HYDROX/SIMETH ES 30 ML SUSPENSION UDCUP PO PRN (07:30)
[2020-06-05] MEDS: MULTIVITAMINS, THERAPEUTIC TABLET PO SCH (10:12)
[2020-06-05] MEDS: LORazepam 2 MG TABLET PO SCH ×4 (10:12→20:43)
[2020-06-05] MEDS: FOLIC ACID 1 MG TABLET PO SCH (10:12)
[2020-06-05] MEDS: THIAMINE 100 MG TABLET PO SCH (10:12)
[2020-06-05] MEDS: GABAPENTIN 300 MG CAPSULE PO SCH ×2 (12:48→20:43)
[2020-06-05] MEDS: BusPIRone HCL 5 MG TABLET PO SCH ×2 (12:48→20:44)
[2020-06-05] MEDS: FLUoxetine HCL 20 MG CAPSULE PO SCH (12:48)
[2020-06-05] MEDS: CARVEDILOL 3.125 MG TABLET PO SCH (16:45)
[2020-06-06 05:00] VITALS: BP 126/78
[2020-06-06] MEDS: ASPIRIN 81 MG CHEWABLE TABLET PO SCH (06:38)
[2020-06-06 08:00] VITALS: BP_SYST 108; BP_SYST 123; BP_DIAS 59; BP_DIAS 70
[2020-06-06] MEDS: CARVEDILOL 3.125 MG TABLET PO SCH ×2 (09:40→17:02)
[2020-06-06] MEDS: BusPIRone HCL 5 MG TABLET PO SCH ×2 (09:40→20:31)
[2020-06-06] MEDS: LORazepam 2 MG TABLET PO SCH ×4 (09:40→20:33)
[2020-06-06] MEDS: MULTIVITAMINS, THERAPEUTIC TABLET PO SCH (09:40)
[2020-06-06] MEDS: FOLIC ACID 1 MG TABLET PO SCH (09:40)
[2020-06-06] MEDS: THIAMINE 100 MG TABLET PO SCH (09:40)
[2020-06-06] MEDS: FLUoxetine HCL 20 MG CAPSULE PO SCH (09:41)
[2020-06-06] MEDS: GABAPENTIN 300 MG CAPSULE PO SCH ×2 (09:41→20:31)
[2020-06-06 17:05] VITALS: BP 126/79
[2020-06-06] MEDS: ZOLPIDEM TARTRATE 10 MG TABLET PO PRN (22:57)
[2020-06-07] MEDS: ASPIRIN 81 MG CHEWABLE TABLET PO SCH (06:49)
[2020-06-07] MEDS ORDERED: LORazepam 1 MG TABLET PO PRN (07:00)
[2020-06-07 08:00] VITALS: BP_SYST 118; BP_SYST 130; BP_DIAS 65; BP_DIAS 70
[2020-06-07] MEDS: CARVEDILOL 3.125 MG TABLET PO SCH ×2 (09:00→16:52)
[2020-06-07] MEDS: FOLIC ACID 1 MG TABLET PO SCH (10:59)
[2020-06-07] MEDS: BusPIRone HCL 5 MG TABLET PO SCH ×2 (10:59→20:59)
[2020-06-07] MEDS: THIAMINE 100 MG TABLET PO SCH (10:59)
[2020-06-07] MEDS: MULTIVITAMINS, THERAPEUTIC TABLET PO SCH (10:59)
[2020-06-07] MEDS: FLUoxetine HCL 20 MG CAPSULE PO SCH (11:00)
[2020-06-07] MEDS: GABAPENTIN 300 MG CAPSULE PO SCH ×2 (11:00→20:59)
[2020-06-07] MEDS: LORazepam 1 MG TABLET PO SCH ×4 (11:01→20:59)
[2020-06-07] MEDS: HALOPERIDOL 5 MG TABLET PO PRN (13:56)
[2020-06-07 18:45] VITALS: BP 100/62
[2020-06-07 18:47] VITALS: BP 106/62
[2020-06-08 04:00] VITALS: BP 126/62
[2020-06-08] MEDS: ACETAMINOPHEN 325 MG TABLET PO PRN ×2 (04:09→18:49)
[2020-06-08] MEDS: ASPIRIN 81 MG CHEWABLE TABLET PO SCH (06:40)
[2020-06-08] MEDS: BusPIRone HCL 5 MG TABLET PO SCH ×2 (08:46→20:42)
[2020-06-08] MEDS: THIAMINE 100 MG TABLET PO SCH (08:47)
[2020-06-08] MEDS: FOLIC ACID 1 MG TABLET PO SCH (08:47)
[2020-06-08] MEDS: GABAPENTIN 300 MG CAPSULE PO SCH ×2 (08:47→20:42)
[2020-06-08] MEDS: MULTIVITAMINS, THERAPEUTIC TABLET PO SCH (08:47)
[2020-06-08] MEDS: FLUoxetine HCL 20 MG CAPSULE PO SCH (08:47)
[2020-06-08] MEDS: CARVEDILOL 3.125 MG TABLET PO SCH ×2 (08:47→17:10)
[2020-06-08 16:09] VITALS: BP 101/67
[2020-06-08] MEDS: LORazepam 1 MG TABLET PO PRN (19:28)
[2020-06-08] MEDS: ZOLPIDEM TARTRATE 10 MG TABLET PO PRN (22:16)
[2020-06-09 01:10] VITALS: BP 131/75
[2020-06-09] MEDS: LORazepam 1 MG TABLET PO PRN (01:14)
[2020-06-09] MEDS: ASPIRIN 81 MG CHEWABLE TABLET PO SCH (06:38)
[2020-06-09 08:46] VITALS: BP 106/67
[2020-06-09 08:48] VITALS: BP 106/67
[2020-06-09] MEDS: MULTIVITAMINS, THERAPEUTIC TABLET PO SCH (09:07)
[2020-06-09] MEDS: BusPIRone HCL 5 MG TABLET PO SCH ×2 (09:07→21:29)
[2020-06-09] MEDS: THIAMINE 100 MG TABLET PO SCH (09:07)
[2020-06-09] MEDS: FLUoxetine HCL 20 MG CAPSULE PO SCH (09:07)
[2020-06-09] MEDS: GABAPENTIN 300 MG CAPSULE PO SCH ×2 (09:08→21:29)
[2020-06-09] MEDS: FOLIC ACID 1 MG TABLET PO SCH (09:08)
[2020-06-09] MEDS: CARVEDILOL 3.125 MG TABLET PO SCH ×2 (09:08→17:00)
[2020-06-09 16:00] VITALS: BP 106/67
[2020-06-09 16:22] VITALS: BP 104/69
[2020-06-09 17:00] VITALS: BP 134/73
[2020-06-09] MEDS: ACETAMINOPHEN 325 MG TABLET PO PRN (17:00)
[2020-06-09] MEDS: HALOPERIDOL 5 MG TABLET PO PRN (18:09)
[2020-06-10] MEDS: ASPIRIN 81 MG CHEWABLE TABLET PO SCH (06:46)
[2020-06-10 08:35] VITALS: BP 109/61
[2020-06-10] MEDS: BusPIRone HCL 5 MG TABLET PO SCH ×2 (08:58→20:30)
[2020-06-10] MEDS: FLUoxetine HCL 20 MG CAPSULE PO SCH (08:58)
[2020-06-10] MEDS: THIAMINE 100 MG TABLET PO SCH (08:58)
[2020-06-10] MEDS: MULTIVITAMINS, THERAPEUTIC TABLET PO SCH (08:58)
[2020-06-10] MEDS: FOLIC ACID 1 MG TABLET PO SCH (08:59)
[2020-06-10] MEDS: GABAPENTIN 300 MG CAPSULE PO SCH ×3 (08:59→20:30)
[2020-06-10] MEDS: CARVEDILOL 3.125 MG TABLET PO SCH ×2 (09:00→16:56)
[2020-06-10 09:20] VITALS: BP 105/66
[2020-06-10] MEDS: IBUPROFEN 400 MG TABLET PO PRN (09:26)
[2020-06-10 10:26] VITALS: BP 120/71
[2020-06-10] MEDS: HydrOXYzine PAMOATE 25 MG CAPSULE PO PRN (10:48)
[2020-06-10 16:05] LABS: COVID AG,FIA SOURCE NASOPHARYNGEAL
[2020-06-10 18:17] VITALS: BP 124/74
[2020-06-10 18:22] VITALS: BP 124/74
[2020-06-11] MEDS: ZOLPIDEM TARTRATE 10 MG TABLET PO PRN (00:04)
[2020-06-11 04:13] VITALS: BP 118/67
[2020-06-11] MEDS: ASPIRIN 81 MG CHEWABLE TABLET PO SCH (06:41)
[2020-06-11 08:15] VITALS: BP 134/73
[2020-06-11] MEDS: MULTIVITAMINS, THERAPEUTIC TABLET PO SCH (09:32)
[2020-06-11] MEDS: CARVEDILOL 3.125 MG TABLET PO SCH ×2 (09:32→17:43)
[2020-06-11] MEDS: FOLIC ACID 1 MG TABLET PO SCH (09:32)
[2020-06-11] MEDS: BusPIRone HCL 5 MG TABLET PO SCH ×2 (09:33→20:29)
[2020-06-11] MEDS: HydrOXYzine PAMOATE 25 MG CAPSULE PO PRN (09:33)
[2020-06-11] MEDS: THIAMINE 100 MG TABLET PO SCH (09:33)
[2020-06-11] MEDS: FLUoxetine HCL 20 MG CAPSULE PO SCH (09:33)
[2020-06-11] MEDS: GABAPENTIN 300 MG CAPSULE PO SCH ×3 (09:34→20:29)
[2020-06-11] MEDS: IBUPROFEN 400 MG TABLET PO PRN (10:47)
[2020-06-11 16:00] VITALS: BP 114/65
[2020-06-11 17:19] VITALS: BP 114/65
[2020-06-12 00:05] VITALS: BP 114/60
[2020-06-12] MEDS: ZOLPIDEM TARTRATE 10 MG TABLET PO PRN ×2 (00:05→21:44)
[2020-06-12] MEDS: ASPIRIN 81 MG CHEWABLE TABLET PO SCH (06:50)
[2020-06-12 08:18] VITALS: BP 117/67
[2020-06-12] MEDS: MULTIVITAMINS, THERAPEUTIC TABLET PO SCH (10:06)
[2020-06-12] MEDS: CARVEDILOL 3.125 MG TABLET PO SCH ×2 (10:08→17:11)
[2020-06-12] MEDS: IBUPROFEN 400 MG TABLET PO PRN (10:08)
[2020-06-12] MEDS: THIAMINE 100 MG TABLET PO SCH (10:08)
[2020-06-12] MEDS: GABAPENTIN 300 MG CAPSULE PO SCH ×3 (10:08→21:28)
[2020-06-12] MEDS: FOLIC ACID 1 MG TABLET PO SCH (10:08)
[2020-06-12] MEDS: BusPIRone HCL 5 MG TABLET PO SCH ×2 (10:08→21:28)
[2020-06-12] MEDS: FLUoxetine HCL 20 MG CAPSULE PO SCH (10:09)
[2020-06-12 16:00] VITALS: BP 121/77
[2020-06-13] MEDS: ASPIRIN 81 MG CHEWABLE TABLET PO SCH (06:44)
[2020-06-13 08:05] VITALS: BP 113/65
[2020-06-13] MEDS: THIAMINE 100 MG TABLET PO SCH (09:04)
[2020-06-13] MEDS: FLUoxetine HCL 20 MG CAPSULE PO SCH (09:04)
[2020-06-13] MEDS: GABAPENTIN 300 MG CAPSULE PO SCH ×3 (09:04→20:41)
[2020-06-13] MEDS: BusPIRone HCL 5 MG TABLET PO SCH ×2 (09:04→20:41)
[2020-06-13] MEDS: MULTIVITAMINS, THERAPEUTIC TABLET PO SCH (09:04)
[2020-06-13] MEDS: CARVEDILOL 3.125 MG TABLET PO SCH ×2 (09:04→17:00)
[2020-06-13] MEDS: FOLIC ACID 1 MG TABLET PO SCH (09:04)
[2020-06-13 09:05] VITALS: BP 116/66
[2020-06-13] MEDS: IBUPROFEN 400 MG TABLET PO PRN (09:05)
[2020-06-13 10:05] VITALS: BP 123/76
[2020-06-13 16:00] VITALS: BP 104/59
[2020-06-13] MEDS: ZOLPIDEM TARTRATE 10 MG TABLET PO PRN (21:12)
[2020-06-14 08:02] VITALS: BP 112/65
[2020-06-14] MEDS: ASPIRIN 81 MG CHEWABLE TABLET PO SCH (09:16)
[2020-06-14] MEDS: MULTIVITAMINS, THERAPEUTIC TABLET PO SCH (09:19)
[2020-06-14] MEDS: THIAMINE 100 MG TABLET PO SCH (09:19)
[2020-06-14] MEDS: GABAPENTIN 300 MG CAPSULE PO SCH ×3 (09:19→20:37)
[2020-06-14] MEDS: IBUPROFEN 400 MG TABLET PO PRN (09:19)
[2020-06-14] MEDS: FLUoxetine HCL 20 MG CAPSULE PO SCH (09:21)
[2020-06-14] MEDS: BusPIRone HCL 5 MG TABLET PO SCH ×2 (09:21→20:37)
[2020-06-14] MEDS: FOLIC ACID 1 MG TABLET PO SCH (09:21)
[2020-06-14] MEDS: CARVEDILOL 3.125 MG TABLET PO SCH ×2 (09:21→16:30)
[2020-06-14 16:00] VITALS: BP 108/58
[2020-06-14] MEDS: TERBINAFINE HCL 1% 30 GM CREAM TP SCH (16:30)
[2020-06-14 23:35] VITALS: BP 105/69
[2020-06-14] MEDS: ZOLPIDEM TARTRATE 10 MG TABLET PO PRN (23:35)
[2020-06-15] MEDS: ASPIRIN 81 MG CHEWABLE TABLET PO SCH (06:59)
[2020-06-15 08:32] VITALS: BP 104/60
[2020-06-15] MEDS: CARVEDILOL 3.125 MG TABLET PO SCH ×2 (09:00→16:21)
[2020-06-15] MEDS: FLUoxetine HCL 20 MG CAPSULE PO SCH (09:01)
[2020-06-15] MEDS: THIAMINE 100 MG TABLET PO SCH (09:01)
[2020-06-15] MEDS: MULTIVITAMINS, THERAPEUTIC TABLET PO SCH (09:01)
[2020-06-15] MEDS: BusPIRone HCL 5 MG TABLET PO SCH ×2 (09:02→20:11)
[2020-06-15] MEDS: TERBINAFINE HCL 1% 30 GM CREAM TP SCH ×2 (09:03→16:21)
[2020-06-15] MEDS: FOLIC ACID 1 MG TABLET PO SCH (09:03)
[2020-06-15] MEDS: GABAPENTIN 300 MG CAPSULE PO SCH ×3 (09:03→20:11)
[2020-06-15] MEDS: IBUPROFEN 400 MG TABLET PO PRN (09:09)
[2020-06-15 09:10] VITALS: BP 104/60
[2020-06-15 10:09] VITALS: BP 106/69
[2020-06-15 16:00] VITALS: BP 123/93
[2020-06-15 16:30] VITALS: BP 123/93
[2020-06-15] MEDS: ZOLPIDEM TARTRATE 10 MG TABLET PO PRN (21:50)
[2020-06-16 04:39] VITALS: BP 118/70
[2020-06-16] MEDS: ASPIRIN 81 MG CHEWABLE TABLET PO SCH (07:00)
[2020-06-16] MEDS: BusPIRone HCL 5 MG TABLET PO SCH ×2 (08:44→20:33)
[2020-06-16] MEDS: MULTIVITAMINS, THERAPEUTIC TABLET PO SCH (08:44)
[2020-06-16] MEDS: FLUoxetine HCL 20 MG CAPSULE PO SCH (08:45)
[2020-06-16] MEDS: CARVEDILOL 3.125 MG TABLET PO SCH ×2 (08:45→16:24)
[2020-06-16] MEDS: GABAPENTIN 300 MG CAPSULE PO SCH ×3 (08:46→20:33)
[2020-06-16] MEDS: FOLIC ACID 1 MG TABLET PO SCH (08:46)
[2020-06-16] MEDS: TERBINAFINE HCL 1% 30 GM CREAM TP SCH ×2 (08:47→16:25)
[2020-06-16] MEDS: THIAMINE 100 MG TABLET PO SCH (08:47)
[2020-06-16 08:53] VITALS: BP 100/52
[2020-06-16 16:00] VITALS: BP 126/71
[2020-06-16] MEDS: ZOLPIDEM TARTRATE 10 MG TABLET PO PRN (20:57)
[2020-06-16] MEDS: ACETAMINOPHEN 325 MG TABLET PO PRN (20:57)
[2020-06-17] MEDS: ASPIRIN 81 MG CHEWABLE TABLET PO SCH (06:49)
[2020-06-17 08:38] LABS: COVID AG,FIA SOURCE NASOPHARYNGEAL
[2020-06-17] MEDS: GABAPENTIN 300 MG CAPSULE PO SCH (08:50)
[2020-06-17] MEDS: THIAMINE 100 MG TABLET PO SCH (08:50)
[2020-06-17] MEDS: BusPIRone HCL 5 MG TABLET PO SCH (08:50)
[2020-06-17] MEDS: FLUoxetine HCL 20 MG CAPSULE PO SCH (08:50)
[2020-06-17] MEDS: MULTIVITAMINS, THERAPEUTIC TABLET PO SCH (08:50)
[2020-06-17] MEDS: FOLIC ACID 1 MG TABLET PO SCH (08:50)
[2020-06-17 08:51] VITALS: BP 97/61
[2020-06-17] MEDS: TERBINAFINE HCL 1% 30 GM CREAM TP SCH (08:51)
[2020-06-17] MEDS: CARVEDILOL 3.125 MG TABLET PO SCH (08:51)
[2020-06-17 09:02] LABS: PHOSPHORUS 4.5 mg/dL (2.5-4.9); POTASSIUM 4.4 mmol/L (3.5-5.1)
[2020-06-17] MEDS ORDERED: ASPI-1450 PO (10:29)
[2020-06-17] MEDS ORDERED: CARV3 PO (10:30)
[2020-06-17] MEDS ORDERED: FOLI-130 PO (10:31)
[2020-06-17] MEDS ORDERED: MULT-413 PO (10:32)
[2020-06-17] MEDS ORDERED: THIA100T80 PO (10:33)
== END 2020-06-17 12:10 | disposition home or self-care (01) | DRG 751 ==
LOC: EMS 17:22 → 3EI 22:00
DX: F33.2 Major depressive disorder, recurrent severe without psychotic features (principal); R45.851 Suicidal ideations; Z20.822 Contact with and (suspected) exposure to COVID-19; I49.9 Cardiac arrhythmia, unspecified; E03.9 Hypothyroidism, unspecified; I48.20 Chronic atrial fibrillation, unspecified; F10.229 Alcohol dependence with intoxication, unspecified; R56.9 Unspecified convulsions; Y90.8 Blood alcohol level of 240 mg/100 ml or more; R41.843 Psychomotor deficit; Z59.0 Homelessness; Z91.5 Personal history of self-harm; Z79.899 Other long term (current) drug therapy
CPT/HCPCS: 84100; 84132; 87081; 87426; 99285; G0480

== ENCOUNTER 2020-12-02 10:09 | Emergency (ER) | payer MEDICAID, OTHER ==
[~2020-12-02] VITALS: Ht 177.8 cm; Wt 81.8 kg
[~2020-12-02 10:09] MED LIST changes: +ASPI-1450 PO; +CARV3 PO; +FOLI-130 PO; +MULT-413 PO; -SERT-158 PO; +THIA100T80 PO
[2020-12-02 11:08] LABS: BASOPHILS % (AUTO) 0.8 % (0.0-2.0); EOSINOPHILS % (AUTO) 3.3 % (1.0-6.0); HEMATOCRIT 42.5 % (36-46); HEMOGLOBIN 14.4 g/dL (12.0-16.0); LYMPHOCYTES # (AUTO) 2.8 K/uL (1.0-4.8); LYMPHOCYTES % (AUTO) 35.6 % (22.0-44.0); MEAN CORPUSCULAR HEMOGLOBIN 30.2 pg (26.0-34.0); MEAN CORPUSCULAR HGB CONC 33.8 G/dL (31.0-37.0); MEAN CORPUSCULAR VOLUME 89 fL (80-100); MONOCYTES # (AUTO) 0.7 K/uL (0.1-1.0); MONOCYTES % (AUTO) 8.6 % (2.0-9.0); NEUTROPHILS # (AUTO) 4.1 K/uL (1.8-7.7); NEUTROPHILS % (AUTO) 51.7 % (40.0-70.0); PLATELET COUNT (AUTO) 251 K/uL (150-450); RED BLOOD CELL COUNT(AUTO) 4.76 MIL/uL (4.00-5.20); RED CELL DISTRIBUTION WIDTH 14.1 % (11.5-14.5)
[2020-12-02 12:13] LABS: ANION GAP 15 mmol/L (8-16); CALCIUM, TOTAL 8.9 mg/dL (8.8-10.5); CARBON DIOXIDE 24 mmol/L (22-29); CHLORIDE 106 mmol/L (98-107); CREATININE 0.93 mg/dL (0.60-1.30); GLOMERULAR FILTR. RATE CALC > 60 mL/min (>60); GLUCOSE,RANDOM 99 mg/dL (70-110); POTASSIUM 3.6 mmol/L (3.5-5.1); SODIUM SERUM 145 mmol/L (136-145); UREA NITROGEN, BLOOD 22 mg/dL (7-18)
[2020-12-02 12:19] LABS: ALANINE AMINOTRANSFERASE 81 U/L (12-78); ALBUMIN 3.8 g/dL (3.4-5.0); ALKALINE PHOSPHATASE 91 U/L (46-116); ASPARTATE AMINOTRANSFERASE 57 U/L (15-37); BILIRUBIN,TOTAL 0.5 mg/dL (0.1-1.0); TOTAL PROTEIN, SERUM 7.2 g/dL (6.4-8.2)
[2020-12-02 14:19] VITALS: BP 99/56
== END 2020-12-02 14:31 | disposition home or self-care (01) ==
LOC: EMS 10:09
DX: R45.851 Suicidal ideations (principal); F10.129 Alcohol abuse with intoxication, unspecified; F32.9 Major depressive disorder, single episode, unspecified; F41.9 Anxiety disorder, unspecified; I48.91 Unspecified atrial fibrillation; Z79.82 Long term (current) use of aspirin; Y90.8 Blood alcohol level of 240 mg/100 ml or more
CPT/HCPCS: 36415; 80053; 85025; 99284; G0480

== ENCOUNTER 2021-09-29 18:59 | Emergency (ER) | payer MEDICARE, OTHER ==
[~2021-09-29] VITALS: Ht 177.8 cm; Wt 79.0 kg
[~2021-09-29 18:59] MED LIST changes: -ASPI-1450 PO; -BUSP5TAB20 PO; -CARV3 PO; -FLUO-191 PO; +FLUO20CA36 PO; -FOLI-130 PO; -GABA-1181 PO; -MULT-413 PO; -THIA100T80 PO
[2021-09-29 21:48] VITALS: BP 101/63
== END 2021-09-29 21:50 | disposition home or self-care (01) ==
LOC: EMS 19:02
DX: R41.82 Altered mental status, unspecified (principal); F10.229 Alcohol dependence with intoxication, unspecified; I48.91 Unspecified atrial fibrillation; F41.9 Anxiety disorder, unspecified; F32.A Depression, unspecified; Z86.79 Personal history of other diseases of the circulatory system; Z86.69 Personal history of other diseases of the nervous system and sense organs; Z87.448 Personal history of other diseases of urinary system; Z98.890 Other specified postprocedural states
CPT/HCPCS: 99283; Z7502

== ENCOUNTER 2022-03-11 21:46 | Emergency (ER) | payer MEDICARE, OTHER ==
[~2022-03-11] VITALS: Ht 172.7 cm; Wt 76.0 kg
[~2022-03-11 21:46] MED LIST changes: +anti depressant PO
[2022-03-11 23:00] LABS: HEMATOCRIT 41.2 % (36-46); MONOCYTES # (AUTO) 0.9 K/uL (0.1-1.0)
[2022-03-11 23:03] LABS: BASOPHILS % (AUTO) 0.7 % (0.0-2.0); EOSINOPHILS % (AUTO) 4.6 % (1.0-6.0); HEMOGLOBIN 13.8 g/dL (12.0-16.0); LYMPHOCYTES # (AUTO) 3.5 K/uL (1.0-4.8); LYMPHOCYTES % (AUTO) 43.9 % (22.0-44.0); MEAN CORPUSCULAR HEMOGLOBIN 31.6 pg (26.0-34.0); MEAN CORPUSCULAR HGB CONC 33.6 G/dL (31.0-37.0); MEAN CORPUSCULAR VOLUME 94 fL (80-100); MONOCYTES % (AUTO) 11.8 % (2.0-9.0); NEUTROPHILS # (AUTO) 3.1 K/uL (1.8-7.7); PLATELET COUNT (AUTO) 206 K/uL (150-450); RED BLOOD CELL COUNT(AUTO) 4.38 MIL/uL (4.00-5.20); RED CELL DISTRIBUTION WIDTH 15.6 % (11.5-14.5)
[2022-03-11 23:09] LABS: ANION GAP 6 mmol/L (8-16); CALCIUM, TOTAL 9.2 mg/dL (8.8-10.5); CARBON DIOXIDE 27 mmol/L (22-29); CHLORIDE 102 mmol/L (98-107); CREATININE 0.64 mg/dL (0.60-1.30); GLUCOSE,RANDOM 111 mg/dL (70-110); POTASSIUM 3.6 mmol/L (3.5-5.1); SODIUM SERUM 135 mmol/L (136-145); UREA NITROGEN, BLOOD 13 mg/dL (7-18)
[2022-03-11 23:10] LABS: GLOMERULAR FILTR. RATE CALC > 60 mL/min (>60)
[2022-03-11 23:15] LABS: ALANINE AMINOTRANSFERASE 59 U/L (12-78); ALBUMIN 3.6 g/dL (3.4-5.0); ALKALINE PHOSPHATASE 79 U/L (46-116); ASPARTATE AMINOTRANSFERASE 47 U/L (15-37); BILIRUBIN,TOTAL 0.2 mg/dL (0.1-1.0); LIPASE 389 U/L (73-393)
[2022-03-12 01:30] VITALS: BP 115/72
[2022-03-12] MEDS ORDERED: FAMOTIDINE 20 MG TABLET PO ONE (01:30)
[2022-03-12] MEDS ORDERED: MAG HYDROX/AL HYDROX/SIMETH 30 ML SUSP UDCUP PO ONE (01:30)
[2022-03-12] MEDS ORDERED: ONDANSETRON HCL 4 MG TABLET PO ONE (01:30)
[2022-03-12] MEDS ORDERED: ONDA-104 PO (02:31)
[2022-03-12] MEDS ORDERED: ACETAMINOPHEN 500 MG TABLET PO ONE (02:45)
== END 2022-03-12 02:57 | disposition home or self-care (01) ==
LOC: EMS 22:15
DX: F10.229 Alcohol dependence with intoxication, unspecified (principal); F32.A Depression, unspecified
CPT/HCPCS: 99284; 80053; 83690; 85025; G0480; Q0162

== ENCOUNTER 2022-03-15 05:58 | Emergency (ER) | payer MEDICARE, OTHER ==
[~2022-03-15] VITALS: Ht 170.2 cm; Wt 80.0 kg
[~2022-03-15 05:58] MED LIST changes: +ONDA-104 PO
[2022-03-15] MEDS ORDERED: MAGNESIUM SULFATE 2 GM, MVI, ADULT NO.1 WITH VIT K 10 ML, THIAMINE 100 MG, FOLIC ACID 1... IV ONE ×5 (07:00)
[2022-03-15 07:43] LABS: BASOPHILS % (AUTO) 0.7 % (0.0-2.0); EOSINOPHILS % (AUTO) 6.8 % (1.0-6.0); HEMATOCRIT 40.3 % (36-46); HEMOGLOBIN 13.8 g/dL (12.0-16.0); LYMPHOCYTES # (AUTO) 3.4 K/uL (1.0-4.8); LYMPHOCYTES % (AUTO) 53.4 % (22.0-44.0); MEAN CORPUSCULAR HEMOGLOBIN 32.1 pg (26.0-34.0); MEAN CORPUSCULAR HGB CONC 34.2 G/dL (31.0-37.0); MEAN CORPUSCULAR VOLUME 94 fL (80-100); MONOCYTES # (AUTO) 0.7 K/uL (0.1-1.0); MONOCYTES % (AUTO) 10.4 % (2.0-9.0); NEUTROPHILS # (AUTO) 1.8 K/uL (1.8-7.7); NEUTROPHILS % (AUTO) 28.7 % (40.0-70.0); RED BLOOD CELL COUNT(AUTO) 4.29 MIL/uL (4.00-5.20); RED CELL DISTRIBUTION WIDTH 15.8 % (11.5-14.5)
[2022-03-15 08:02] LABS: ANION GAP 8 mmol/L (8-16); CALCIUM, TOTAL 8.2 mg/dL (8.8-10.5); CARBON DIOXIDE 29 mmol/L (22-29); CHLORIDE 109 mmol/L (98-107); CREATININE 0.56 mg/dL (0.60-1.30); GLUCOSE,RANDOM 93 mg/dL (70-110); POTASSIUM 5.4 mmol/L (3.5-5.1); SODIUM SERUM 146 mmol/L (136-145); UREA NITROGEN, BLOOD 12 mg/dL (7-18)
[2022-03-15 08:03] LABS: GLOMERULAR FILTR. RATE CALC > 60 mL/min (>60); PLATELET COUNT (AUTO) 186 K/uL (150-450)
[2022-03-15 08:08] LABS: ALANINE AMINOTRANSFERASE 46 U/L (12-78); ALBUMIN 3.5 g/dL (3.4-5.0); ALKALINE PHOSPHATASE 82 U/L (46-116); ASPARTATE AMINOTRANSFERASE 64 U/L (15-37); BILIRUBIN,TOTAL 0.5 mg/dL (0.1-1.0)
[2022-03-15 11:12] VITALS: BP 138/74
[2022-03-15] MEDS ORDERED: DIAZEPAM 5 MG TABLET PO ONE (12:45)
== END 2022-03-15 12:52 | disposition home or self-care (01) ==
LOC: EMS 05:58
DX: F10.129 Alcohol abuse with intoxication, unspecified (principal); F32.A Depression, unspecified
CPT/HCPCS: 99284; 96365; 80053; 85025; 36415; G0480; J3490 ×2; J3411; J3475; J7030

== ENCOUNTER 2022-03-17 14:56 | Emergency (ER) | payer MEDICARE, OTHER ==
[~2022-03-17] VITALS: Ht 165.1 cm; Wt 68.2 kg
[2022-03-17] MEDS ORDERED: MAGNESIUM SULFATE 2 GM, MVI, ADULT NO.1 WITH VIT K 10 ML, THIAMINE 100 MG, FOLIC ACID 1... IV ONE ×5 (15:15)
[2022-03-17] MEDS ORDERED: SODIUM CHLORIDE 0.9% 1,000 ML IV ONE (15:15)
[2022-03-17 15:47] LABS: BASOPHILS % (AUTO) 1.3 % (0.0-2.0); EOSINOPHILS % (AUTO) 4.9 % (1.0-6.0); HEMATOCRIT 39.8 % (36-46); HEMOGLOBIN 13.5 g/dL (12.0-16.0); LYMPHOCYTES # (AUTO) 2.9 K/uL (1.0-4.8); LYMPHOCYTES % (AUTO) 51.3 % (22.0-44.0); MEAN CORPUSCULAR HEMOGLOBIN 31.7 pg (26.0-34.0); MEAN CORPUSCULAR HGB CONC 33.9 G/dL (31.0-37.0); MEAN CORPUSCULAR VOLUME 94 fL (80-100); MONOCYTES # (AUTO) 0.6 K/uL (0.1-1.0); NEUTROPHILS # (AUTO) 1.8 K/uL (1.8-7.7); NEUTROPHILS % (AUTO) 31.5 % (40.0-70.0); PLATELET COUNT (AUTO) 149 K/uL (150-450); RED BLOOD CELL COUNT(AUTO) 4.26 MIL/uL (4.00-5.20); RED CELL DISTRIBUTION WIDTH 15.7 % (11.5-14.5)
[2022-03-17 15:51] LABS: ANION GAP 7 mmol/L (8-16); CALCIUM, TOTAL 7.7 mg/dL (8.8-10.5); CARBON DIOXIDE 28 mmol/L (22-29); CHLORIDE 111 mmol/L (98-107); CREATININE 0.62 mg/dL (0.60-1.30); GLUCOSE,RANDOM 99 mg/dL (70-110); POTASSIUM 3.4 mmol/L (3.5-5.1); SODIUM SERUM 146 mmol/L (136-145); UREA NITROGEN, BLOOD 7 mg/dL (7-18)
[2022-03-17 15:57] LABS: ALANINE AMINOTRANSFERASE 42 U/L (12-78); ALBUMIN 3.3 g/dL (3.4-5.0); ALKALINE PHOSPHATASE 81 U/L (46-116); ASPARTATE AMINOTRANSFERASE 39 U/L (15-37); BILIRUBIN,TOTAL 0.4 mg/dL (0.1-1.0); TOTAL PROTEIN, SERUM 6.4 g/dL (6.4-8.2)
[2022-03-17 15:59] LABS: GLOMERULAR FILTR. RATE CALC > 60 mL/min (>60)
[2022-03-17 18:10] LABS: APPEARANCE,URINE CLEAR (CLEAR); BILIRUBIN,URINE NEGATIVE (NEGATIVE); GLUCOSE, URINE (UA) NEGATIVE (NEGATIVE); KETONES,URINE NEGATIVE (NEGATIVE); LEUKOCYTE ESTERASE ,URINE NEGATIVE (NEGATIVE); NITRATE,URINE NEGATIVE (NEGATIVE); OCCULT BLOOD,URINE NEGATIVE (NEGATIVE); PH,URINE 5.5 (5.0-8.0); PROTEIN,URINE NEGATIVE (NEGATIVE); SPECIFIC GRAVITIY, URINE 1.009 (1.003-1.030); UROBILINOGEN,URINE <=1.0 mg/dL (<=1.0)
[2022-03-17 19:35] VITALS: BP 120/66
[2022-03-17] MEDS ORDERED: ONDANSETRON HCL 4 MG TABLET PO ONE (21:15)
== END 2022-03-17 21:39 | disposition home or self-care (01) ==
LOC: EMS 15:00
DX: F10.129 Alcohol abuse with intoxication, unspecified (principal); F32.A Depression, unspecified
CPT/HCPCS: 99284; 96365; 80053; 81003; 82140; 83735; 85025; 36415; G0480; J3490 ×2; Q0162; J3411; J3475; J7030

== ENCOUNTER 2022-05-18 20:16 | Emergency (ER) | payer MEDICARE, OTHER ==
[~2022-05-18] VITALS: Ht 182.9 cm; Wt 79.5 kg
[2022-05-18 23:03] LABS: HEMOGLOBIN 13.4 g/dL (12.0-16.0); LYMPHOCYTES # (AUTO) 2.8 K/uL (1.0-4.8); LYMPHOCYTES % (AUTO) 44.7 % (22.0-44.0); MEAN CORPUSCULAR HEMOGLOBIN 32.7 pg (26.0-34.0); MEAN CORPUSCULAR HGB CONC 33.5 G/dL (31.0-37.0); MEAN CORPUSCULAR VOLUME 98 fL (80-100); MONOCYTES % (AUTO) 15.2 % (2.0-9.0); NEUTROPHILS # (AUTO) 2.2 K/uL (1.8-7.7); NEUTROPHILS % (AUTO) 35.1 % (40.0-70.0); PLATELET COUNT (AUTO) 237 K/uL (150-450); RED BLOOD CELL COUNT(AUTO) 4.11 MIL/uL (4.00-5.20); RED CELL DISTRIBUTION WIDTH 16.7 % (11.5-14.5)
[2022-05-18 23:08] LABS: ANION GAP 10 mmol/L (8-16); CALCIUM, TOTAL 9.2 mg/dL (8.8-10.5); CARBON DIOXIDE 24 mmol/L (22-29); CHLORIDE 107 mmol/L (98-107); CREATININE 0.72 mg/dL (0.60-1.30); GLOMERULAR FILTR. RATE CALC > 60 mL/min (>60); GLUCOSE,RANDOM 85 mg/dL (70-110); POTASSIUM 3.8 mmol/L (3.5-5.1); SODIUM SERUM 141 mmol/L (136-145); UREA NITROGEN, BLOOD 11 mg/dL (7-18)
[2022-05-18 23:14] LABS: ALANINE AMINOTRANSFERASE 106 U/L (12-78); ALBUMIN 3.9 g/dL (3.4-5.0); ALKALINE PHOSPHATASE 78 U/L (46-116); ASPARTATE AMINOTRANSFERASE 108 U/L (15-37); BILIRUBIN,TOTAL 0.4 mg/dL (0.1-1.0); TOTAL PROTEIN, SERUM 6.9 g/dL (6.4-8.2)
[2022-05-19 05:46] VITALS: BP 142/84
== END 2022-05-19 06:25 | disposition home or self-care (01) ==
LOC: EMS 20:16
DX: F10.129 Alcohol abuse with intoxication, unspecified (principal); F32.A Depression, unspecified; Y90.9 Presence of alcohol in blood, level not specified
CPT/HCPCS: 99285; 80053; 85025; G0480

== ENCOUNTER 2022-05-19 19:43 | Emergency (ER) | payer MEDICARE, OTHER ==
[~2022-05-19] VITALS: Ht 182.9 cm; Wt 79.0 kg
[2022-05-19 22:31] LABS: BASOPHILS % (AUTO) 0.9 % (0.0-2.0); EOSINOPHILS % (AUTO) 4.2 % (1.0-6.0); HEMOGLOBIN 12.4 g/dL (12.0-16.0); LYMPHOCYTES # (AUTO) 2.8 K/uL (1.0-4.8); LYMPHOCYTES % (AUTO) 53.5 % (22.0-44.0); MEAN CORPUSCULAR HEMOGLOBIN 32.5 pg (26.0-34.0); MEAN CORPUSCULAR HGB CONC 33.4 G/dL (31.0-37.0); MEAN CORPUSCULAR VOLUME 97 fL (80-100); MONOCYTES # (AUTO) 0.8 K/uL (0.1-1.0); MONOCYTES % (AUTO) 14.4 % (2.0-9.0); NEUTROPHILS # (AUTO) 1.4 K/uL (1.8-7.7); PLATELET COUNT (AUTO) 216 K/uL (150-450); RED BLOOD CELL COUNT(AUTO) 3.82 MIL/uL (4.00-5.20); RED CELL DISTRIBUTION WIDTH 16.4 % (11.5-14.5)
[2022-05-19 22:38] LABS: ANION GAP 9 mmol/L (8-16); CALCIUM, TOTAL 9.1 mg/dL (8.8-10.5); CARBON DIOXIDE 27 mmol/L (22-29); CHLORIDE 107 mmol/L (98-107); CREATININE 0.76 mg/dL (0.60-1.30); GLOMERULAR FILTR. RATE CALC > 60 mL/min (>60); GLUCOSE,RANDOM 85 mg/dL (70-110); POTASSIUM 3.7 mmol/L (3.5-5.1); SODIUM SERUM 143 mmol/L (136-145); UREA NITROGEN, BLOOD 10 mg/dL (7-18)
[2022-05-19 22:44] LABS: ALANINE AMINOTRANSFERASE 128 U/L (12-78); ALBUMIN 3.7 g/dL (3.4-5.0); ALKALINE PHOSPHATASE 75 U/L (46-116); ASPARTATE AMINOTRANSFERASE 126 U/L (15-37); BILIRUBIN,TOTAL 0.3 mg/dL (0.1-1.0); TOTAL PROTEIN, SERUM 6.6 g/dL (6.4-8.2)
[2022-05-20 03:23] VITALS: BP 107/54
== END 2022-05-20 04:07 | disposition home or self-care (01) ==
LOC: EMS 19:43
DX: F10.129 Alcohol abuse with intoxication, unspecified (principal); F32.A Depression, unspecified
CPT/HCPCS: 99285; 80053; 85025; G0480

== ENCOUNTER 2022-05-20 16:00 | Emergency (ER) | payer MEDICARE, OTHER ==
[~2022-05-20] VITALS: Ht 167.6 cm; Wt 72.4 kg
[2022-05-20 17:50] LABS: BASOPHILS % (AUTO) 1.2 % (0.0-2.0); EOSINOPHILS % (AUTO) 4.4 % (1.0-6.0); HEMATOCRIT 41.7 % (36-46); HEMOGLOBIN 13.9 g/dL (12.0-16.0); LYMPHOCYTES # (AUTO) 2.4 K/uL (1.0-4.8); LYMPHOCYTES % (AUTO) 46.7 % (22.0-44.0); MEAN CORPUSCULAR HEMOGLOBIN 32.4 pg (26.0-34.0); MEAN CORPUSCULAR HGB CONC 33.2 G/dL (31.0-37.0); MEAN CORPUSCULAR VOLUME 98 fL (80-100); MONOCYTES # (AUTO) 0.8 K/uL (0.1-1.0); MONOCYTES % (AUTO) 14.9 % (2.0-9.0); NEUTROPHILS # (AUTO) 1.7 K/uL (1.8-7.7); NEUTROPHILS % (AUTO) 32.8 % (40.0-70.0); PLATELET COUNT (AUTO) 223 K/uL (150-450); RED BLOOD CELL COUNT(AUTO) 4.28 MIL/uL (4.00-5.20); RED CELL DISTRIBUTION WIDTH 16.5 % (11.5-14.5)
[2022-05-20 17:58] LABS: ANION GAP 13 mmol/L (8-16); CALCIUM, TOTAL 9.2 mg/dL (8.8-10.5); CARBON DIOXIDE 24 mmol/L (22-29); CHLORIDE 109 mmol/L (98-107); CREATININE 0.71 mg/dL (0.60-1.30); GLOMERULAR FILTR. RATE CALC > 60 mL/min (>60); GLUCOSE,RANDOM 75 mg/dL (70-110); POTASSIUM 3.7 mmol/L (3.5-5.1); SODIUM SERUM 146 mmol/L (136-145); UREA NITROGEN, BLOOD 9 mg/dL (7-18)
[2022-05-20 18:05] LABS: ALANINE AMINOTRANSFERASE 175 U/L (12-78); ALBUMIN 3.8 g/dL (3.4-5.0); ALKALINE PHOSPHATASE 78 U/L (46-116); ASPARTATE AMINOTRANSFERASE 171 U/L (15-37); BILIRUBIN,TOTAL 0.4 mg/dL (0.1-1.0); TOTAL PROTEIN, SERUM 6.9 g/dL (6.4-8.2)
[2022-05-20 22:14] VITALS: BP 121/76
== END 2022-05-20 22:59 | disposition home or self-care (01) ==
LOC: EMS 16:03
DX: R41.82 Altered mental status, unspecified (principal); F10.129 Alcohol abuse with intoxication, unspecified; F32.A Depression, unspecified; Y90.8 Blood alcohol level of 240 mg/100 ml or more
CPT/HCPCS: 99283; 80053; 85025; 36415; G0480

== ENCOUNTER 2023-04-07 20:22 | Emergency (ER) | payer MEDICARE, OTHER ==
[~2023-04-07] VITALS: Ht 177.8 cm; Wt 78.0 kg
[~2023-04-07 20:22] MED LIST changes: +ASPI-1450 PO; +BUSP5TAB20 PO; +GABA-1181 PO; +MULT-248 PO; -ONDA-104 PO; +TERB30CR8 TP; -anti depressant PO
[2023-04-07 22:53] VITALS: TEMP 98.2
[2023-04-07 23:30] LABS: BASOPHILS % (AUTO) 0.6 % (0.0-2.0); EOSINOPHILS % (AUTO) 0.8 % (1.0-6.0); HEMATOCRIT 41.9 % (36-46); HEMOGLOBIN 14.7 g/dL (12.0-16.0); LYMPHOCYTES # (AUTO) 3.5 K/uL (1.0-4.8); LYMPHOCYTES % (AUTO) 29.1 % (22.0-44.0); MEAN CORPUSCULAR HEMOGLOBIN 32.1 pg (26.0-34.0); MEAN CORPUSCULAR HGB CONC 35.1 G/dL (31.0-37.0); MEAN CORPUSCULAR VOLUME 92 fL (80-100); MONOCYTES % (AUTO) 8.3 % (2.0-9.0); NEUTROPHILS # (AUTO) 7.3 K/uL (1.8-7.7); NEUTROPHILS % (AUTO) 61.2 % (40.0-70.0); PLATELET COUNT (AUTO) 290 K/uL (150-450); RED BLOOD CELL COUNT(AUTO) 4.58 MIL/uL (4.00-5.20); RED CELL DISTRIBUTION WIDTH 13.5 % (11.5-14.5); WHITE BLOOD COUNT (AUTO) 11.9 K/uL (4.5-11.0)
[2023-04-07 23:44] LABS: CALCIUM, TOTAL 9.3 mg/dL (8.8-10.5); CREATININE 0.98 mg/dL (0.60-1.30)
[2023-04-07 23:50] LABS: AMMONIA 25 umol/L (11-32); TROPONIN I-HIGH SENSITIVITY 5 ng/L (<51)
[2023-04-07 23:53] LABS: ALBUMIN 4.1 g/dL (3.4-5.0); BILIRUBIN,TOTAL 0.4 mg/dL (0.1-1.0); TOTAL PROTEIN, SERUM 7.3 g/dL (6.4-8.2)
[2023-04-08] MEDS: SODIUM CHLORIDE 0.9% 1,000 ML IV ONE (00:34)
[2023-04-08 06:53] VITALS: BP 116/61; PULSE 82; RESP 18
[2023-04-08] MEDS: ACETAMINOPHEN 500 MG TABLET PO ONE (07:00)
== END 2023-04-08 07:13 | disposition home or self-care (01) ==
LOC: EMS 20:25
DX: F10.129 Alcohol abuse with intoxication, unspecified (principal); F32.A Depression, unspecified
CPT/HCPCS: 99285; 71045; 80053; 82140; 82550; 84484; 85025; 36415; 93005; 96360; G0480; J7030

== ENCOUNTER 2024-02-04 16:28 | Inpatient (IN) | payer MEDICARE, MEDICAID ==
[~2024-02-04] VITALS: Ht 177.8 cm; Wt 86.8 kg
[~2024-02-04 16:28] MED LIST changes: +FLUO-418 PO; -FLUO20CA36 PO
[2024-02-04 19:28] LABS: COVID AG,FIA SOURCE NASAL SWAB
[2024-02-04 19:28] LABS: BASOPHILS % (AUTO) 0.9 % (0.0-2.0); EOSINOPHILS % (AUTO) 1.7 % (1.0-6.0); HEMATOCRIT 42.5 % (36-46); HEMOGLOBIN 14.6 g/dL (12.0-16.0); LYMPHOCYTES # (AUTO) 3.4 K/uL (1.0-4.8); LYMPHOCYTES % (AUTO) 47.5 % (22.0-44.0); MEAN CORPUSCULAR HGB CONC 34.3 G/dL (31.0-37.0); MEAN CORPUSCULAR VOLUME 93 fL (80-100); MONOCYTES # (AUTO) 0.7 K/uL (0.1-1.0); MONOCYTES % (AUTO) 9.3 % (2.0-9.0); NEUTROPHILS # (AUTO) 2.9 K/uL (1.8-7.7); NEUTROPHILS % (AUTO) 40.6 % (40.0-70.0); RED BLOOD CELL COUNT(AUTO) 4.56 MIL/uL (4.00-5.20); WHITE BLOOD COUNT (AUTO) 7.1 K/uL (4.5-11.0)
[2024-02-04 19:44] LABS: PH,URINE DRUG SCREEN 7.5 (5.0-8.0)
[2024-02-04] MEDS: DiphenhydrAMINE HCL 50 MG/ML VIAL IM ONE (19:44)
[2024-02-04 19:45] LABS: ANION GAP 12 mmol/L (8-16); CARBON DIOXIDE 27 mmol/L (22-29); CHLORIDE 105 mmol/L (98-107); CREATININE 0.75 mg/dL (0.60-1.30); GLOMERULAR FILTR. RATE CALC > 60 mL/min (>60); GLUCOSE,RANDOM 107 mg/dL (70-110); POTASSIUM 3.8 mmol/L (3.5-5.1); SODIUM SERUM 144 mmol/L (136-145); UREA NITROGEN, BLOOD 9 mg/dL (7-18)
[2024-02-04] MEDS: LORazepam 2 MG/ML VIAL IM ONE (19:45)
[2024-02-04] MEDS: HALOPERIDOL LACTATE 5 MG/ML VIAL IM ONE (19:45)
[2024-02-04 19:46] LABS: ALCOHOL, BLOOD (SERUM) 147 mg/dL (0-10)
[2024-02-04 19:51] LABS: ALCOHOL, URINE DRUG SCREEN POSITIVE (NEGATIVE); AMPHET/METH SCREEN,URINE NEGATIVE (NEGATIVE); BARBITURATE SCREEN, URINE NEGATIVE (NEGATIVE); BENZODIAZEPINES SCREEN,URINE NEGATIVE (NEGATIVE); CANNABINOID SCREEN,URINE NEGATIVE (NEGATIVE); COCAINE SCREEN,URINE NEGATIVE (NEGATIVE); METHADONE SCREEN, URINE NEGATIVE (NEGATIVE); OPIATE SCREEN,URINE NEGATIVE (NEGATIVE); PHENCYCLIDINE SCREEN,URINE NEGATIVE (NEGATIVE)
[2024-02-04 20:04] LABS: SARS-COV2 (COVID) ANTIGEN,FIA Negative (Negative)
[2024-02-04 20:12] LABS: PLATELET COUNT (AUTO) 286 K/uL (150-450)
[2024-02-04] MEDS ORDERED: ZOLPIDEM TARTRATE 10 MG TABLET PO PRN (23:00)
[2024-02-05] VITALS (15 sets, daily range): BP systolic 115–138; BP diastolic 67–84; PULSE 75–98; RESP 16–18; TEMP 97–98.6; O2SAT 95–98
[2024-02-05] MEDS ORDERED: NICOTINE 14 MG/24 HOUR PATCH TD PRN (06:45)
[2024-02-05] MEDS ORDERED: GuaiFENesin/D-METHORPHAN [SUGAR-FREE] 200-20MG/10 ML SYRUP UDCUP PO PRN (06:45)
[2024-02-05] MEDS ORDERED: MAG HYDROX/ALUMINUM HYD/SIMETH ES 30 ML SUSPENSION UDCUP PO PRN (06:45)
[2024-02-05] MEDS ORDERED: CloNIDine HCL 0.1 MG TABLET PO PRN (06:45)
[2024-02-05] MEDS ORDERED: LOPERAMIDE HCL 2 MG CAPSULE PO PRN (06:45)
[2024-02-05] MEDS ORDERED: ONDANSETRON 4 MG TABLET PO PRN (06:45)
[2024-02-05] MEDS ORDERED: ALBUTEROL SULFATE HFA 90 MCG/PUFF 8 GM INHALER IH PRN (06:45)
[2024-02-05] MEDS ORDERED: PETROLATUM,WHITE 28 GM JELLY TP PRN (06:45)
[2024-02-05] MEDS ORDERED: DOCUSATE SODIUM 100 MG CAPSULE PO PRN (06:45)
[2024-02-05] MEDS ORDERED: MAGNESIUM HYDROXIDE SUSPENSION 30 ML UDCUP PO PRN (06:45)
[2024-02-05] MEDS: MULTIVITAMINS WITH MINERALS, THERAPEUTIC TABLET PO SCH (08:17)
[2024-02-05] MEDS: ASPIRIN 81 MG CHEWABLE TABLET PO SCH (08:18)
[2024-02-05] MEDS: TERBINAFINE HCL 1% 30 GM CREAM TP SCH (09:00)
[2024-02-05] MEDS: INFLUENZA VIRUS VACCINE TVS (6MO+) 2024-25/PF 45 MCG/0.5 ML SYRINGE IM. ONE (10:34)
[2024-02-05] MEDS: BusPIRone HCL 5 MG TABLET PO SCH (12:22)
[2024-02-05] MEDS: FLUoxetine HCL 20 MG CAPSULE PO SCH (12:23)
[2024-02-05] MEDS: ACETAMINOPHEN 325 MG TABLET PO PRN (14:15)
[2024-02-05] MEDS: GABAPENTIN 300 MG CAPSULE PO SCH (20:09)
[2024-02-06] VITALS (7 sets, daily range): BP systolic 113–133; BP diastolic 63–84; PULSE 88–104; RESP 16–18; TEMP 97.2–97.8; O2SAT 95–98
[2024-02-06] MEDS ORDERED: ASPIRIN 81 MG CHEWABLE TABLET PO SCH (09:00)
[2024-02-06 10:06] LABS: HEMOGLOBIN A1C 5.1 % (3.8-5.6)
[2024-02-06 10:44] LABS: THYROID STIMULATING HORMONE 3.74 uIU/mL (0.36-3.74)
[2024-02-06 11:02] LABS: CHOL/HDL RATIO 2.1 (3.9-5.7)
[2024-02-07 08:09] VITALS: BP_SYST 130; BP_SYST 131; BP_DIAS 70; PULSE 66; RESP 17; TEMP 97.8; O2SAT 95
[2024-02-07] MEDS: IBUPROFEN 400 MG TABLET PO PRN (19:02)
[2024-02-07] MEDS: LORazepam 2 MG TABLET PO PRN (20:26)
[2024-02-07 21:36] VITALS: BP 119/70; PULSE 70; RESP 18; TEMP 97.2; O2SAT 97
[2024-02-07 21:49] VITALS: BP 119/70; PULSE 70; RESP 18; TEMP 97.2; O2SAT 97
[2024-02-08 08:00] VITALS: BP 124/58; PULSE 75; RESP 17; TEMP 97.9; O2SAT 96
[2024-02-08] MEDS: HALOPERIDOL 5 MG TABLET PO PRN (08:01)
[2024-02-08 08:36] VITALS: BP 135/76; PULSE 75; RESP 18; TEMP 97.9; O2SAT 100
[2024-02-08 20:30] VITALS: BP 116/68; PULSE 80; RESP 18; TEMP 98.2; O2SAT 98
[2024-02-08 21:00] VITALS: BP 116/56; PULSE 72; RESP 18; TEMP 98.2; O2SAT 98
[2024-02-09 05:56] VITALS: BP 118/72; PULSE 76; RESP 18; TEMP 98; O2SAT 97
[2024-02-09 08:11] VITALS: BP 109/61; PULSE 67; RESP 18; TEMP 96.8; O2SAT 95
[2024-02-09 16:11] VITALS: BP 118/71; PULSE 73; RESP 16; TEMP 97.6; O2SAT 98
[2024-02-09 20:16] VITALS: BP 107/70; PULSE 69; RESP 18; TEMP 96.3; O2SAT 98
[2024-02-09 20:18] VITALS: BP 107/70; PULSE 69; RESP 18; TEMP 96.3; O2SAT 98
[2024-02-10 01:14] VITALS: BP 131/85; PULSE 83; RESP 16; TEMP 98; O2SAT 98
[2024-02-10] MEDS: SODIUM CHLORIDE 0.65% 44 ML NASAL SPRAY NASAL SCH (08:05)
[2024-02-10 08:11] VITALS: BP 112/74; PULSE 80; RESP 16; TEMP 96.9; O2SAT 97
[2024-02-10 08:52] VITALS: BP 112/74; PULSE 80; RESP 16; TEMP 96.9; O2SAT 97
[2024-02-10 20:05] VITALS: BP 125/66; PULSE 68; RESP 16; TEMP 97.8; O2SAT 98
[2024-02-11] VITALS (10 sets, daily range): BP systolic 113–126; BP diastolic 67–76; PULSE 66–79; RESP 16–18; TEMP 97.5–97.8; O2SAT 18–99
[2024-02-11 08:33] LABS: APPEARANCE,URINE CLEAR (CLEAR); BILIRUBIN,URINE NEGATIVE (NEGATIVE); COLOR,URINE LIGHT YELLOW (YELLOW); GLUCOSE, URINE (UA) NEGATIVE (NEGATIVE); KETONES,URINE NEGATIVE (NEGATIVE); LEUKOCYTE ESTERASE ,URINE SMALL (NEGATIVE); NITRATE,URINE NEGATIVE (NEGATIVE); OCCULT BLOOD,URINE NEGATIVE (NEGATIVE); PH,URINE 6.5 (5.0-8.0); PH,URINE DRUG SCREEN 6.5 (5.0-8.0); PROTEIN,URINE NEGATIVE (NEGATIVE); SPECIFIC GRAVITIY, URINE 1.013 (1.003-1.030); UROBILINOGEN,URINE <=1.0 mg/dL (<=1.0)
[2024-02-11 08:51] LABS: BACTERIA,URINE None Seen /HPF (None Seen); RBC,URINE 0-2 /HPF (0-2); WBC,URINE None Seen /HPF (0-5)
[2024-02-11 10:31] LABS: ALCOHOL, URINE DRUG SCREEN NEGATIVE (NEGATIVE); AMPHET/METH SCREEN,URINE NEGATIVE (NEGATIVE); BARBITURATE SCREEN, URINE NEGATIVE (NEGATIVE); BENZODIAZEPINES SCREEN,URINE NEGATIVE (NEGATIVE); CANNABINOID SCREEN,URINE NEGATIVE (NEGATIVE); COCAINE SCREEN,URINE NEGATIVE (NEGATIVE); METHADONE SCREEN, URINE NEGATIVE (NEGATIVE); OPIATE SCREEN,URINE NEGATIVE (NEGATIVE); PHENCYCLIDINE SCREEN,URINE NEGATIVE (NEGATIVE)
[2024-02-12 08:03] VITALS: BP 100/63; PULSE 67; RESP 16; TEMP 97.8; O2SAT 96
[2024-02-13 01:02] VITALS: BP 112/65; PULSE 70; RESP 17; TEMP 97.7; O2SAT 98
[2024-02-13 09:36] VITALS: BP 105/64; PULSE 95; RESP 17; TEMP 96.8; O2SAT 95
[2024-02-13 20:01] VITALS: BP 102/69; PULSE 74; RESP 17; TEMP 97.6; O2SAT 99
[2024-02-14 01:32] VITALS: BP 114/69; PULSE 81; RESP 18; TEMP 96.6; O2SAT 98
[2024-02-14 10:00] VITALS: BP 118/100; PULSE 82; RESP 17; TEMP 97.5; O2SAT 97
[2024-02-14 20:50] VITALS: BP 110/66; PULSE 84; RESP 18; TEMP 97.6; O2SAT 98
[2024-02-15 08:06] VITALS: BP 120/71; PULSE 75; RESP 16; TEMP 96.9; O2SAT 98
[2024-02-15 15:54] VITALS: RESP 16
[2024-02-15 16:54] VITALS: RESP 16
[2024-02-15 21:09] VITALS: BP 101/80; PULSE 66; RESP 15; TEMP 98; O2SAT 98
[2024-02-16 08:06] VITALS: BP 98/60; PULSE 78; RESP 15; TEMP 98.2; O2SAT 99
[2024-02-16 08:48] VITALS: BP 135/78; PULSE 78; RESP 18
[2024-02-16 20:06] VITALS: BP 104/69; PULSE 70; RESP 16; TEMP 97.3; O2SAT 99
[2024-02-17 08:12] VITALS: BP 112/64; RESP 18; TEMP 97.8; O2SAT 98
[2024-02-17 20:01] VITALS: BP 109/63; PULSE 77; RESP 17; TEMP 97.3; O2SAT 99
[2024-02-18 08:14] VITALS: BP 110/66; PULSE 87; RESP 18; TEMP 97.8; O2SAT 96
[2024-02-18 20:19] VITALS: BP 102/60; PULSE 72; RESP 16; TEMP 97.5; O2SAT 98
[2024-02-19 08:39] VITALS: BP 119/67; PULSE 70; TEMP 97.4; O2SAT 97
[2024-02-19 20:53] VITALS: BP 108/71; PULSE 73; RESP 16; TEMP 98.3; O2SAT 97
[2024-02-20 08:01] VITALS: BP 101/63; PULSE 69; RESP 17; TEMP 98; O2SAT 96
[2024-02-20 20:03] VITALS: RESP 17
[2024-02-20 20:33] VITALS: BP 114/62; PULSE 72; RESP 16; TEMP 97.9; O2SAT 98
[2024-02-20 21:03] VITALS: RESP 16
[2024-02-21 07:42] VITALS: BP 98/66; PULSE 71; RESP 17; TEMP 96.9; O2SAT 92
[2024-02-21 08:00] VITALS: BP 98/66; PULSE 71; RESP 17; TEMP 96.9; O2SAT 92
[2024-02-21 20:00] VITALS: BP 106/60; PULSE 70; RESP 17; TEMP 97.1; O2SAT 100
[2024-02-22 08:06] VITALS: BP 106/65; PULSE 79; RESP 16; TEMP 97.6; O2SAT 97
[2024-02-22 20:21] VITALS: BP 111/57; PULSE 69; RESP 18; TEMP 97.2; O2SAT 98
[2024-02-23 08:04] VITALS: BP 113/65; PULSE 71; RESP 18; TEMP 96.6; O2SAT 98
== END 2024-02-23 13:15 | DRG 885 ==
LOC: EMS 16:28 → B2X 02-05 01:53 → UNDODISIN 02-23 13:15
PROVIDERS: ADMIT Psychiatry & Neurology Psychiatry; ATTEND Psychiatry & Neurology Psychiatry
PROC: GZHZZZZ Group Psychotherapy (ICD-10-PCS; principal; 2024-02-16)
PROC: GZ52ZZZ Individual Psychotherapy, Cognitive (ICD-10-PCS; 2024-02-16)
DX: F33.2 Major depressive disorder, recurrent severe without psychotic features (principal); I48.20 Chronic atrial fibrillation, unspecified; E03.9 Hypothyroidism, unspecified; F10.20 Alcohol dependence, uncomplicated; R56.9 Unspecified convulsions; Z20.822 Contact with and (suspected) exposure to COVID-19; F41.9 Anxiety disorder, unspecified; G62.9 Polyneuropathy, unspecified; K59.00 Constipation, unspecified; G47.00 Insomnia, unspecified; Y90.6 Blood alcohol level of 120-199 mg/100 ml; Z91.51 Personal history of suicidal behavior; Z79.899 Other long term (current) drug therapy; Z91.81 History of falling
CPT/HCPCS: 80048; 80061; 80307; 81001; 83036; 84443; 85025; 87081; 87481; 99285; G0480; J1200; J1630; J2060; Q0162